=== PATIENT | female | born 1940 | race Caucasian/White ===

== ENCOUNTER → 2016-10-18 | Outpatient (CLI) | payer MEDICARE, OTHER ==
[~2016-10-18] MED LIST: ALBU8I INH; AMLO5TAB22 PO; ASPI81TA82 PO; ATOR40TA PO; CALC500T19 PO; CELE200C PO; FERR140T PO; GABA100C4 PO; MECL25 PO; REST30CA PO; SPIRCAP INH
[2016-10-18 09:16] LABS: AUTOMATED NEUTROPHIL # 3.4 TH/MM3 (1.8-7.7); BASOPHIL # 0.1 TH/MM3 (0-0.2); EOSINOPHIL # 0.3 TH/MM3 (0-0.4); EOSINOPHIL % 4.5 % (0.0-4.0); HEMATOCRIT 40.6 % (35.0-46.0); HEMO FLAGS DIFF FINAL; LYMPH % 29.6 % (9.0-44.0); LYMPHOCYTE # 1.7 TH/MM3 (1.0-4.8); MEAN CELL VOLUME 92.1 FL (80.0-100.0); MEAN CORPUSCULAR HGB CONC 33.7 % (32.0-36.0); MONO % 7.4 % (0.0-8.0); NEUT % 57.5 % (16.0-70.0); PLATELET COUNT 169 TH/MM3 (150-450); RED BLOOD COUNT 4.41 MIL/MM3 (4.00-5.30); RED CELL DISTRIBUTION WIDTH 13.3 % (11.6-17.2); WHITE BLOOD COUNT 5.8 TH/MM3 (4.0-11.0)
[2016-10-18 09:43] LABS: ALKALINE PHOSPHATASE 78 U/L (45-117); ALT (GPT) 17 U/L (10-53); ANION GAP 7 MEQ/L (5-15); AST (GOT) 12 U/L (15-37); BLOOD UREA NITROGEN 19 MG/DL (7-18); CHLORIDE 106 MEQ/L (98-107); GLOMERULAR FILTRATION RATE 78 ML/MIN (>89); GLUCOSE,FASTING 86 MG/DL (74-99); HDL CHOLESTEROL 64.1 MG/DL (40.0-60.0); LDL CHOLESTEROL 57 MG/DL (0-99); POTASSIUM 4.5 MEQ/L (3.5-5.1); SODIUM (NA) 142 MEQ/L (136-145); TOTAL BILIRUBIN ADULT 0.5 MG/DL (0.2-1.0)
[2016-10-18 10:56] LABS: HEMOGLOBIN A1a 1.4 %; HEMOGLOBIN A1b 1.5 %; HEMOGLOBIN Ao 85.8 %; HEMOGLOBIN P3 3.6 %
== END ==
LOC: PLAB 07:23
PROVIDERS: ATTEND Family Medicine
DX: R73.9 Hyperglycemia, unspecified (principal); E78.5 Hyperlipidemia, unspecified
CPT/HCPCS: 36415; 80053; 80061; 83036; 85025

== ENCOUNTER → 2017-03-25 | Outpatient (CLI) | payer MEDICARE, OTHER ==
[2017-03-25 09:29] LABS: ANION GAP 7 MEQ/L (5-15); AST (GOT) 38 U/L (15-37); BICARBONATE 27.8 MEQ/L (21.0-32.0); BLOOD UREA NITROGEN 13 MG/DL (7-18); CHLORIDE 105 MEQ/L (98-107); GLOMERULAR FILTRATION RATE 88 ML/MIN (>89); GLUCOSE,FASTING 88 MG/DL (74-99); POTASSIUM 3.9 MEQ/L (3.5-5.1); SODIUM (NA) 140 MEQ/L (136-145)
[2017-03-25 09:33] LABS: ALKALINE PHOSPHATASE 75 U/L (45-117); ALT (GPT) 27 U/L (10-53); LDL CHOLESTEROL 82 MG/DL (0-99); TOTAL BILIRUBIN ADULT 0.3 MG/DL (0.2-1.0)
== END ==
LOC: PLAB 06:44
PROVIDERS: ATTEND Family Medicine
DX: E78.5 Hyperlipidemia, unspecified (principal)
CPT/HCPCS: 36415; 80053; 80061

== ENCOUNTER 2017-05-01 21:45 | Emergency (ER) | payer MEDICARE, OTHER ==
[~2017-05-01] VITALS: Ht 167.6 cm; Wt 57.8 kg
[2017-05-01 21:57] VITALS: BP 186/80; PULSE 96; RESP 16; TEMP 98.1; O2SAT 95
[2017-05-01 22:45] VITALS: BP 169/74; PULSE 77; RESP 16; RESP 18; O2SAT 95
[2017-05-01] MEDS ORDERED: SODIUM CHLORIDE 0.9% FLUSH 10 ML FLUSH IVF PRN (23:00)
--- NOTE | 2017-05-01 23:27 | PD ---
HPI Chief Complaint: Respiratory Symptoms Time Seen by Provider: 22:25 Travel History International Travel<30 days: No Contact w/Intl Traveler<30days: No Traveled to known affect area: No History of Present Illness HPI Patient is a 76-year-old female who comes in after an episode of palpitations with shortness of breath and lightheadedness. She says she was sitting on her couch watching Lex Bean speak when she became very upset and started to feel this way. She says that she is worried because she has a history of cardiovascular disease. She denies ever having any chest pain. She says she currently still feels a little short of breath and lightheaded. She denies recent travel, leg swelling or leg pain. She says she did have 2 cups of coffee this evening, but this is not abnormal for her. She denies any drug or alcohol use. PFSH Past Medical History Cardiovascular Problems: Yes (70 heart blockage, last nuc stress test ? 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) Hypertension: No (PT DENIES BP MED IS FOR CARDIAC BLOCKAGE) Respiratory: Yes (COPD) Immunizations Current: Yes Influenza Vaccination: Yes PNEUMOCCOCAL Vaccine (Year): 2009 Menopausal: Yes : 3 Para: 4 Miscarriage: 1 Tubal Ligation: Yes Social History Alcohol Use: Yes (OCC) Tobacco Use: No (QUIT 1998) Substance Use: No Allergies-Medications (Allergen,Severity, Reaction): Coded Allergies: Penicillin (Verified Allergy, Severe, HIVES, 05/01/17) Reported Meds & Prescriptions Reported Meds & Active Scripts Active Antivert (Meclizine HCl) 25 Mg Tab 25 Mg PO Q6HPRN Reported Ventolin Hfa (Albuterol Sulfate) 8 Gm Aero 2 Puff INH Q4 * SHAKE WELL BEFORE USE * Celebrex (Celecoxib) 200 Mg Cap 200 Mg PO DAILY Amlodipine Besylate 5 mg (Amlodipine Besylate) 5 Mg Tab 5 Mg PO DAILY Atorvastatin 40 mg (Atorvastatin Calcium) 40 Mg Tab 1 Tab PO HS Gabapentin 100 Mg Cap 100 Mg PO DAILY Aspir-81 (Aspirin) 81 Mg Tab 162 Mg PO DAILY Spiriva [place] (Tiotropium [place]) 18 Mcg Cap 1 Dose INH DAILY DO NOT SWALLOW CAPSULES Calcium 500 Mg Tab 500 Mg PO DAILY Restoril 30 mg (Temazepam) 30 Mg Cap 30 Mg PO HS Review of Systems Except as stated in HPI: all other systems reviewed are Neg General / Constitutional: No: Fever, Chills Eyes: No: Blurred Vision HENT: Positive: Lightheadedness, No: Headaches Cardiovascular: Positive: Palpitations, No: Chest Pain or Discomfort Respiratory: Positive: Shortness of Breath, No: Cough Gastrointestinal: No: Nausea, Vomiting Musculoskeletal: No: Myalgias, Edema Skin: No Rash, No Change in Pigmentation Neurologic: Positive: Dizziness Physical Exam Narrative GENERAL: Awake and alert, in no acute distress. SKIN: Focused skin assessment warm/dry. HEAD: Atraumatic. Normocephalic. EYES: Pupils equal and round. No scleral icterus. ENT: Mucous membranes pink and moist. NECK: Trachea midline. No JVD. CARDIOVASCULAR: Regular rate and rhythm. No murmur appreciated. RESPIRATORY: No accessory muscle use. Clear to auscultation. Breath sounds equal bilaterally. MUSCULOSKELETAL: No obvious deformities. No clubbing. No cyanosis. No edema. NEUROLOGICAL: Awake and alert. No obvious cranial nerve deficits. Motor grossly within normal limits. Normal speech. PSYCHIATRIC: Appropriate mood and affect; insight and judgment normal. Data Data Last Documented VS Vital Signs Date Time Temp Pulse Resp B/P Pulse Ox O2 Delivery O2 Flow Rate FiO2 05/01/17 22:45 18 95 Room Air 05/01/17 22:45 77 169/74 05/01/17 21:57 98.1 Orders Complete Blood Count With Diff (05/01/17 22:50) Comprehensive Metabolic Panel (05/01/17 22:50) Act Partial Throm Time (Ptt) (05/01/17 22:50) Prothrombin Time / Inr (Pt) (05/01/17 22:50) Ckmb (Isoenzyme) Profile (05/01/17 22:50) Troponin I (05/01/17 22:50) Iv Access Insert/Monitor (05/01/17 22:50) Electrocardiogram (05/01/17 22:50) Ecg Monitoring (05/01/17 22:50) Oximetry (05/01/17 22:50) Oxygen Administration (05/01/17 22:50) Chest, Single Ap (05/01/17 22:50) Ct Pulmonary Angiogram (05/01/17 22:50) Sodium Chloride 0.9% Flush (Ns Flush) (05/01/17 23:00) Labs Laboratory Tests Test 05/01/17 23:15 White Blood Count 9.0 TH/MM3 Red Blood Count 4.20 MIL/MM3 Hemoglobin 13.0 GM/DL Hematocrit 38.8 % Mean Corpuscular Volume 92.5 FL Mean Corpuscular Hemoglobin 30.9 PG Mean Corpuscular Hemoglobin 33.4 % Concent Red Cell Distribution Width 12.7 % Platelet Count 171 TH/MM3 Mean Platelet Volume 8.6 FL Neutrophils (%) (Auto) 72.2 % Lymphocytes (%) (Auto) 16.5 % Monocytes (%) (Auto) 8.1 % Eosinophils (%) (Auto) 2.7 % Basophils (%) (Auto) 0.5 % Neutrophils # (Auto) 6.6 TH/MM3 Lymphocytes # (Auto) 1.5 TH/MM3 Monocytes # (Auto) 0.7 TH/MM3 Eosinophils # (Auto) 0.2 TH/MM3 Basophils # (Auto) 0.0 TH/MM3 CBC Comment DIFF FINAL Differential Comment Prothrombin Time 12.0 SEC Prothromb Time International 1.1 RATIO Ratio Activated Partial 28.5 SEC Thromboplast Time Sodium Level 142 MEQ/L Potassium Level 3.5 MEQ/L Chloride Level 108 MEQ/L Carbon Dioxide Level 27.4 MEQ/L Anion Gap 7 MEQ/L Blood Urea Nitrogen 15 MG/DL Creatinine 0.84 MG/DL Estimat Glomerular Filtration 66 ML/MIN Rate Random Glucose 140 MG/DL Calcium Level 8.3 MG/DL Total Bilirubin 0.2 MG/DL Aspartate Amino Transf 18 U/L (AST/SGOT) Alanine Aminotransferase 19 U/L (ALT/SGPT) Alkaline Phosphatase 84 U/L Total Creatine Kinase 63 U/L Troponin I LESS THAN 0.02 NG/ML Total Protein 7.0 GM/DL Albumin 3.6 GM/DL [facility] Medical Decision Making Medical Screen Exam Complete: Yes Emergency Medical Condition: Yes Medical Record Reviewed: Yes Interpretation(s) ECG shows normal sinus rhythm at 68, no ST elevation or depression, normal intervals Differential Diagnosis Electrolyte abnormality versus ACS versus dehydration versus pneumonia versus PE Narrative Course Patient is a 76-year-old female comes in complaining of an episode of palpitations, shortness of breath, lightheadedness. Exam shows no acute abnormality's. IV established, labs sent. Patient connected to the cardiac care unit nurse. Labs show no acute abnormalities. CXR shows no acute abnormalities. CTA chest ordered to look for PE. Signed out to Dr. Way to follow up testing and disposition the patient. Natasha Sultana MD May 01, 2017 23:27
[2017-05-01 23:33] LABS: AUTOMATED NEUTROPHIL # 6.6 TH/MM3 (1.8-7.7); BASOPHIL % 0.5 % (0.0-2.0); EOSINOPHIL # 0.2 TH/MM3 (0-0.4); EOSINOPHIL % 2.7 % (0.0-4.0); HEMATOCRIT 38.8 % (35.0-46.0); HEMO FLAGS DIFF FINAL; LYMPH % 16.5 % (9.0-44.0); LYMPHOCYTE # 1.5 TH/MM3 (1.0-4.8); MEAN CELL VOLUME 92.5 FL (80.0-100.0); MEAN CORPUSCULAR HEMOGLOBIN 30.9 PG (27.0-34.0); MEAN CORPUSCULAR HGB CONC 33.4 % (32.0-36.0); MONO % 8.1 % (0.0-8.0); NEUT % 72.2 % (16.0-70.0); PLATELET COUNT 171 TH/MM3 (150-450); RED CELL DISTRIBUTION WIDTH 12.7 % (11.6-17.2)
--- NOTE | 2017-05-01 23:41 | RADRPT ---
EXAM DATE/TIME: 05/01/2017 23:27 [facility] COMPARISON: CHEST PA & LAT, August 12, 2015, 10:09. CHEST SINGLE AP, November 25, 2014, 15:20. INDICATIONS : Shortness of breath starting today MEDICAL HISTORY : Chronic obstructive pulmonary disease. SURGICAL HISTORY : None. ENCOUNTER: Initial ACUITY: 1 day PAIN SCORE: 0/10 LOCATION: Bilateral chest FINDINGS: Portable AP view of the chest demonstrates a normal-sized cardiac silhouette. No effusion, consolidat ion, or pneumothorax is visualized. The bones and soft tissues demonstrate no acute abnormality. Ther e is a stable calcified granuloma at the left lower lung zone. Right convex curvature of the thoracic spine is stable. CONCLUSION: Stable chest x-ray. No acute cardiopulmonary abnormality is identified. Jak Draper MD on May 01, 2017 at 23:38 Board Certified Radiologist. This report was verified electronically.
[2017-05-01 23:44] LABS: CHLORIDE 108 MEQ/L (98-107); POTASSIUM 3.5 MEQ/L (3.5-5.1); SODIUM (NA) 142 MEQ/L (136-145)
[2017-05-01 23:45] VITALS: BP 142/59; PULSE 68; RESP 16; O2SAT 96
[2017-05-01 23:48] LABS: ANION GAP 7 MEQ/L (5-15); BICARBONATE 27.4 MEQ/L (21.0-32.0); BLOOD UREA NITROGEN 15 MG/DL (7-18)
[2017-05-01 23:49] LABS: APTT (PATIENT) 28.5 SEC (24.3-30.1); INTERNATIONAL NORMALIZED RATIO 1.1 RATIO
[2017-05-01 23:51] LABS: ALT (GPT) 19 U/L (10-53); AST (GOT) 18 U/L (15-37); GLOMERULAR FILTRATION RATE 66 ML/MIN (>89)
[2017-05-01 23:52] LABS: TOTAL BILIRUBIN ADULT 0.2 MG/DL (0.2-1.0)
[2017-05-01 23:54] LABS: ALKALINE PHOSPHATASE 84 U/L (45-117); CREATINE KINASE 63 U/L (26-192)
[2017-05-02] MEDS ORDERED: IOHEXOL 350 MG/ML 10 ML VIAL (for RAD DIAG) IV ONE (00:20)
--- NOTE | 2017-05-02 00:33 | RADRPT ---
EXAM DATE/TIME: 05/02/2017 00:04 [facility] COMPARISON: No previous studies available for comparison. INDICATIONS : Shortness of breath. IV CONTRAST: 75 cc Omnipaque 350 (iohexol) IV RADIATION DOSE: 6.15 CTDIvol (mGy) MEDICAL HISTORY : Chronic obstructive pulmonary disease. SURGICAL HISTORY : None. ENCOUNTER: Initial ACUITY: 1 day PAIN SCALE: 0/10 LOCATION: chest TECHNIQUE: Volumetric scanning of the chest was performed using a pulmonary embolism protocol MIP images were re constructed. Using automated exposure control and adjustment of the mA and/or kV according to patien t size, radiation dose was kept as low as reasonably achievable to obtain optimal diagnostic quality images. DICOM format image data is available electronically for review and comparison. Follow-up recommendations for incidentally detected pulmonary nodules are based at a minimum on nodul e size and patient risk factors according to Fleischner Society Guidelines. FINDINGS: Examination quality is degraded by respiratory motion artifact in the inferior chest. PULMONARY ARTERIES: No filling defects are seen in the pulmonary arteries through the segmental level. LUNGS: There is no consolidation or pneumothorax . No concerning pulmonary nodule is visualized. There is m oderate severity centrilobular emphysema. PLEURAE: There is no pleural thickening or pleural effusion. MEDIASTINUM: There is good visualization of the great vessels of the middle mediastinum. No evidence of mediastin al or hilar adenopathy/mass. There is atherosclerotic disease of aorta. MUSCULOSKELETAL: There are degenerative changes of the thoracic spine with mild scoliosis. MISCELLANEOUS: The visualized upper abdominal organs demonstrate no acute abnormality. Small hiatal hernia is presen t. CONCLUSION: 1. No PE is identified. 2. Nonacute findings include emphysema and small hiatal hernia. Jak Draper MD on May 02, 2017 at 0:27 Board Certified Radiologist. This report was verified electronically.
--- NOTE | 2017-05-02 00:48 | PD ---
Physical Exam Narrative Patient was seen by ED physician and signed out to me. Data Data Last Documented VS Vital Signs Date Time Temp Pulse Resp B/P Pulse Ox O2 Delivery O2 Flow Rate FiO2 05/01/17 22:45 18 95 Room Air 05/01/17 22:45 77 169/74 05/01/17 21:57 98.1 Orders Complete Blood Count With Diff (05/01/17 22:50) Comprehensive Metabolic Panel (05/01/17 22:50) Act Partial Throm Time (Ptt) (05/01/17 22:50) Prothrombin Time / Inr (Pt) (05/01/17 22:50) Ckmb (Isoenzyme) Profile (05/01/17 22:50) Troponin I (05/01/17 22:50) Iv Access Insert/Monitor (05/01/17 22:50) Electrocardiogram (05/01/17 22:50) Ecg Monitoring (05/01/17 22:50) Oximetry (05/01/17 22:50) Oxygen Administration (05/01/17 22:50) Chest, Single Ap (05/01/17 22:50) Ct Pulmonary Angiogram (05/01/17 22:50) Sodium Chloride 0.9% Flush (Ns Flush) (05/01/17 23:00) Iohexol 350 Inj (Omnipaque 350 Inj) (05/02/17 00:20) Labs Laboratory Tests Test 05/01/17 23:15 White Blood Count 9.0 TH/MM3 Red Blood Count 4.20 MIL/MM3 Hemoglobin 13.0 GM/DL Hematocrit 38.8 % Mean Corpuscular Volume 92.5 FL Mean Corpuscular Hemoglobin 30.9 PG Mean Corpuscular Hemoglobin 33.4 % Concent Red Cell Distribution Width 12.7 % Platelet Count 171 TH/MM3 Mean Platelet Volume 8.6 FL Neutrophils (%) (Auto) 72.2 % Lymphocytes (%) (Auto) 16.5 % Monocytes (%) (Auto) 8.1 % Eosinophils (%) (Auto) 2.7 % Basophils (%) (Auto) 0.5 % Neutrophils # (Auto) 6.6 TH/MM3 Lymphocytes # (Auto) 1.5 TH/MM3 Monocytes # (Auto) 0.7 TH/MM3 Eosinophils # (Auto) 0.2 TH/MM3 Basophils # (Auto) 0.0 TH/MM3 CBC Comment DIFF FINAL Differential Comment Prothrombin Time 12.0 SEC Prothromb Time International 1.1 RATIO Ratio Activated Partial 28.5 SEC Thromboplast Time Sodium Level 142 MEQ/L Potassium Level 3.5 MEQ/L Chloride Level 108 MEQ/L Carbon Dioxide Level 27.4 MEQ/L Anion Gap 7 MEQ/L Blood Urea Nitrogen 15 MG/DL Creatinine 0.84 MG/DL Estimat Glomerular Filtration 66 ML/MIN Rate Random Glucose 140 MG/DL Calcium Level 8.3 MG/DL Total Bilirubin 0.2 MG/DL Aspartate Amino Transf 18 U/L (AST/SGOT) Alanine Aminotransferase 19 U/L (ALT/SGPT) Alkaline Phosphatase 84 U/L Total Creatine Kinase 63 U/L Troponin I LESS THAN 0.02 NG/ML Total Protein 7.0 GM/DL Albumin 3.6 GM/DL MDM Supervised Visit with ИРИНА: No Interpretation(s) Last Impressions Chest X-Ray 05/01/172249 Signed Impressions: Service Date/Time: Monday, May 01, 2017 23:27 - CONCLUSION: Stable chest x-ray. No acute cardiopulmonary abnormality is identified. Jak Draper MD CT Angiography 05/01/172249 Signed Impressions: Service Date/Time: April 00:04 - CONCLUSION: 1. No PE is identified. 2. Nonacute findings include emphysema and small hiatal hernia. Jak Draper MD 12:45 AM. CBC within normal limits. CMP within normal limit. Cardiac enzymes are normal. Diagnosis Primary Impression: Dyspnea Qualified Code: R06.00 - Dyspnea, unspecified type Patient Instructions: General Instructions Additional Instruction: Follow-up with personal physician. Return as needed. Med/Other Pt SpecificInfo: No Change to Meds Disposition: DISCHARGE HOME Condition: Stable Giovani Way MD May 02, 2017 00:48
[2017-05-02 01:05] VITALS: BP 128/67; PULSE 78; RESP 16; O2SAT 95
[2017-05-02] MEDS ORDERED: FERR140T PO (03:13)
[2017-05-02] MEDS ORDERED: AMLO5TAB2 PO (03:13)
[2017-05-02] MEDS ORDERED: VENTAER INH (03:13)
[2017-05-02] MEDS ORDERED: MECL-62 PO (03:13)
[2017-05-02] MEDS ORDERED: SPIRCAP INH (03:13)
[2017-05-02] MEDS ORDERED: CALC500C16 CHEW (03:13)
[2017-05-02] MEDS ORDERED: GABA100C4 PO (03:13)
[2017-05-02] MEDS ORDERED: REST30CA PO (03:13)
[2017-05-02] MEDS ORDERED: ATOR40TA16 PO (03:13)
[2017-05-02] MEDS ORDERED: CELE200C PO (03:13)
[2017-05-02] MEDS ORDERED: ASPI81CH CHEW (03:13)
--- NOTE | 2017-05-02 12:48 | EKG ---
Date Performed: 05/01/2017 Time Performed: 22:58:39 PTAGE: 76 years EKG: Sinus rhythm NORMAL ECG PREVIOUS TRACING : 01/30/2016 23.39 DOCTOR: Campbell Eden Interpretating Date/Time 05/02/2017 12:45:02
== END 2017-05-02 01:18 | disposition home or self-care (01) ==
LOC: PHED 21:45
DX: R06.02 Shortness of breath (principal); R42 Dizziness and giddiness; R00.2 Palpitations; I25.10 Atherosclerotic heart disease of native coronary artery without angina pectoris; J44.9 Chronic obstructive pulmonary disease, unspecified; Z79.82 Long term (current) use of aspirin; Z87.891 Personal history of nicotine dependence
CPT/HCPCS: 71010; 71275; 80053; 82550; 84484; 85025; 85610; 85730; 93005; 99285; Q9967

== ENCOUNTER → 2017-06-25 | Outpatient (CLI) | payer MEDICARE, OTHER ==
[~2017-06-25] MED LIST changes: -ALBU8I INH; +AMLO5TAB2 PO; -AMLO5TAB22 PO; +ASPI81CH CHEW; -ASPI81TA82 PO; -ATOR40TA PO; +ATOR40TA16 PO; +CALC500C16 CHEW; -CALC500T19 PO; +GUAI1TAB18; +MECL-62 PO; -MECL25 PO; +PRED20 PO; +VENTAER INH
--- NOTE | 2017-07-12 11:30 | RSPPFT ---
DATE OF PROCEDURE: 06/25/17 COMMENTS: VOLUMES DYNAMIC: FVC moderately reduced; FEV1 severely reduced. STATIC: TLC normal; FRC and RV mildly increased. FLOWS: FEV1% moderately reduced; FEF 25-75 severely reduced. DIFFUSION: Moderately reduced. FLOW VOLUME LOOP: Pattern of variable intrathoracic airways obstruction. IMPRESSION: Moderately severe to severe obstructive ventilatory defect with hyperinflation and a reduction in diffusion consistent with emphysema. There is improvement post-bronchodilator.
== END ==
LOC: PHRSP 10:50
PROVIDERS: ATTEND Internal Medicine
DX: J44.9 Chronic obstructive pulmonary disease, unspecified (principal)
CPT/HCPCS: 94060; 94620; 94726; 94729

== ENCOUNTER 2017-07-13 16:01 | Emergency (ER) | payer MEDICARE, OTHER ==
[~2017-07-13] VITALS: Ht 167.6 cm; Wt 57.0 kg
[~2017-07-13 16:01] MED LIST changes: -GUAI1TAB18; -PRED20 PO
[2017-07-13 16:05] VITALS: BP 175/79; PULSE 122; RESP 18; TEMP 98.5; O2SAT 91
[2017-07-13 16:27] VITALS: BP 139/65; PULSE 84; RESP 26
[2017-07-13] MEDS ORDERED: GUAI1TAB18 (16:28)
--- NOTE | 2017-07-13 16:34 | PD ---
HPI Chief Complaint: Respiratory Symptoms Time Seen by Provider: 16:34 Travel History International Travel<30 days: No Contact w/Intl Traveler<30days: No Traveled to known affect area: No History of Present Illness HPI 76-year-old female came to the emergency room with history of shortness of breath is progressively worsening over past 2 weeks. Patient has history of COPD and ran out of her Spiriva 2 weeks ago. She went to see her compliance auditor Dr. Forrest who put her on a new medication which is an inhaler as well but patient says that she's been using it and it's not helping. She called his office again and was asked to take Mucinex [id number]. Patient is taking that as well but it continues to worsen.She can hear herself wheezing. There is associated wet cough that is getting worse as well. She is unable to bring up any phlegm. No history of fever or chills. No history of chest pain. Her is here with her who has known her for 8 years and says she has never had this kind of cough since he has known her. Her vital signs in triage was suggestive of tachycardia and hypoxia. However the repeat vital signs after she 's been on 2 L of oxygen via nasal cannula he hasn't saturation is slightly better. Patient does not require oxygen at home. No history of DVT or PEs. No history of recent long distance travel or prolonged hospitalization or procedures. [facility] Past Medical History Narrative Medical List of her past medical, surgical, social and family history is reviewed from the nursing note. Hx Anticoagulant Therapy: Yes (ASA) Cardiovascular Problems: Yes (70 heart blockage, last nuc stress test ? 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 Reported Meds & Prescriptions Reported Meds & Active Scripts Active Prednisone 20 Mg Tab 20 Mg PO BID 5 Days Reported Mucinex (Guaifenesin) 1,200 Mg Tab.er.12h Restoril (Temazepam) 30 Mg Cap 30 Mg PO HS Meclizine (Meclizine HCl) 25 Mg Tab 25 Mg PO Q6HR PRN Gabapentin 100 Mg Cap 100 Mg PO DAILY Calcium Carbonate (Antacid) 500 Mg Chew 500 Mg CHEW DAILY Atorvastatin (Atorvastatin Calcium) 40 Mg Tab 40 Mg PO HS Aspirin 81 Mg Chew 162 Mg CHEW DAILY Amlodipine (Amlodipine Besylate) 5 Mg Tab 5 Mg PO DAILY Ventolin Hfa 18 GM Inh (Albuterol Sulfate) 90 Mcg/Act Aer 2 Puff INH Q4H PRN Narrative Medication List of her home medications reviewed from the nursing note. Review of Systems Except as stated in HPI: all other systems reviewed are Neg Respiratory: Positive: Cough, Shortness of Breath, Wheezing Physical Exam Narrative GENERAL: Awake, alert, moderate distress SKIN: Focused skin assessment warm/dry. HEAD: Atraumatic. Normocephalic. EYES: Pupils equal and round. No scleral icterus. No injection or drainage. ENT: No nasal bleeding or discharge. Mucous membranes pink and moist. NECK: Trachea midline. No JVD. CARDIOVASCULAR: Regular rate and rhythm. No murmur appreciated. RESPIRATORY: No accessory muscle use. Diminished air entry bilaterally, end expiratory wheeze GASTROINTESTINAL: Abdomen soft, non-tender, nondistended. Hepatic and splenic margins not palpable. MUSCULOSKELETAL: No obvious deformities. No clubbing. No cyanosis. No edema. NEUROLOGICAL: Awake and alert. No obvious cranial nerve deficits. Motor grossly within normal limits. Normal speech. PSYCHIATRIC: Appropriate mood and affect; insight and judgment normal. Data Data Last Documented VS Vital Signs Date Time Temp Pulse Resp B/P (MAP) Pulse Ox O2 Delivery O2 Flow Rate FiO2 07/13/17 18:52 96 Room Air 07/13/17 16:47 2.00 07/13/17 16:27 84 26 07/13/17 16:05 98.5 Orders Orders Complete Blood Count With Diff (07/13/17 16:38) Basic Metabolic Panel (Bmp) (07/13/17 16:38) B-Type Natriuretic Peptide (07/13/17 16:38) Troponin I (07/13/17 16:38) Iv Access Insert/Monitor (07/13/17 16:38) Electrocardiogram (07/13/17 16:38) Ecg Monitoring (07/13/17 16:38) Oximetry (07/13/17 16:38) Oxygen Administration (07/13/17 16:38) Chest, Single Ap (07/13/17 16:38) Sodium Chloride 0.9% Flush (Ns Flush) (07/13/17 16:45) Methylprednisolone So Succ Inj (Solumedr (07/13/17 16:45) Albuterol-Ipratropium Neb (Duoneb Neb) (07/13/17 16:45) Albuterol Neb (Albuterol Neb) (07/13/17 18:00) Labs Laboratory Tests Test 07/13/17 16:50 White Blood Count 7.1 TH/MM3 Red Blood Count 4.33 MIL/MM3 Hemoglobin 13.1 GM/DL Hematocrit 39.9 % Mean Corpuscular Volume 92.1 FL Mean Corpuscular Hemoglobin 30.4 PG Mean Corpuscular Hemoglobin Concent 33.0 % Red Cell Distribution Width 12.7 % Platelet Count 187 TH/MM3 Mean Platelet Volume 8.6 FL Neutrophils (%) (Auto) 62.2 % Lymphocytes (%) (Auto) 22.1 % Monocytes (%) (Auto) 7.6 % Eosinophils (%) (Auto) 7.4 % Basophils (%) (Auto) 0.7 % Neutrophils # (Auto) 4.5 TH/MM3 Lymphocytes # (Auto) 1.6 TH/MM3 Monocytes # (Auto) 0.5 TH/MM3 Eosinophils # (Auto) 0.5 TH/MM3 Basophils # (Auto) 0.0 TH/MM3 CBC Comment DIFF FINAL Differential Comment Blood Urea Nitrogen 10 MG/DL Creatinine 0.70 MG/DL Random Glucose 97 MG/DL Calcium Level 8.7 MG/DL Sodium Level 139 MEQ/L Potassium Level 3.6 MEQ/L Chloride Level 106 MEQ/L Carbon Dioxide Level 26.2 MEQ/L Anion Gap 7 MEQ/L Estimat Glomerular Filtration Rate 82 ML/MIN Troponin I LESS THAN 0.02 NG/ML B-Type Natriuretic Peptide 40 PG/ML MDM Medical Decision Making Medical Screen Exam Complete: Yes Emergency Medical Condition: Yes Medical Record Reviewed: Yes Interpretation(s) Twelve-lead EKG was reviewed by me. Normal sinus rhythm, normal axis, nonspecific ST-T wave changes, PAC. Heart rate of 82 bpm. Differential Diagnosis Acute COPD exacerbation, congestive heart failure, pneumonia Narrative Course 4:46 PM awaiting for blood test results and x-ray. Patient will be getting IV Solu-Medrol and 3 duo nebs. I will reassess her in a bit. 5:57 PM I reassessed the patient. Her air entry is much better but there is still some wheezing. Patient says she feels better. She had a lot of questions to ask and I have answered all her questions to the best of my ability. Patient will get 2 more albuterol nebulizer. I would like to see her oxygen saturation on room air. Blood test results of back and within acceptable limits. Chest x-ray is negative for any infiltrate. 7:02 PM patient was asked to ambulate and after she walked around the department and came back pulse ox was checked and it is 94-96% on room air. Air entry was significantly improved. I'm comfortable discharging her home. Procedures EKG Prior to Arrival: No Diagnosis Primary Impression: Acute exacerbation of chronic obstructive pulmonary disease Referrals: Primary Care Physician 2 days Additional Instructions: Please return to the ER if the condition worsens or any other new concerns. Otherwise follow-up with your primary care in couple days. Use your rescue inhaler which is albuterol 2 puffs every 4-6 hours till your symptoms completely improved or for 5 days which ever comes first. Take the prescription as per the directions. Med/Other Pt SpecificInfo: Prescription(s) given Scripts Prednisone (Prednisone) 20 Mg Tab 20 MG PO BID for 5 Days, #10 TAB 0 Refills Prov: Reno Chauhan MD 07/13/17 Disposition: 01 DISCHARGE HOME Condition: Stable Reno Chauhan MD Jul 13, 2017 16:34
[2017-07-13] MEDS ORDERED: methylPREDNISolone SOD SUCC 125 MG/2 ML VIAL IV PUSH ONE (16:45)
[2017-07-13] MEDS ORDERED: SODIUM CHLORIDE 0.9% FLUSH 10 ML FLUSH IVF PRN (16:45)
[2017-07-13] MEDS: RESP: ALBUTEROL 2.5 MG/IPRATROPIUM 0.5 MG NEB (SCH) INH ×2 (16:46→16:47)
[2017-07-13 16:47] VITALS: O2SAT 95
[2017-07-13 16:54] LABS: AUTOMATED NEUTROPHIL # 4.5 TH/MM3 (1.8-7.7); BASOPHIL % 0.7 % (0.0-2.0); EOSINOPHIL # 0.5 TH/MM3 (0-0.4); EOSINOPHIL % 7.4 % (0.0-4.0); HEMATOCRIT 39.9 % (35.0-46.0); HEMO FLAGS DIFF FINAL; LYMPH % 22.1 % (9.0-44.0); LYMPHOCYTE # 1.6 TH/MM3 (1.0-4.8); MEAN CELL VOLUME 92.1 FL (80.0-100.0); MEAN CORPUSCULAR HEMOGLOBIN 30.4 PG (27.0-34.0); MONO % 7.6 % (0.0-8.0); NEUT % 62.2 % (16.0-70.0); PLATELET COUNT 187 TH/MM3 (150-450); RED BLOOD COUNT 4.33 MIL/MM3 (4.00-5.30); RED CELL DISTRIBUTION WIDTH 12.7 % (11.6-17.2); WHITE BLOOD COUNT 7.1 TH/MM3 (4.0-11.0)
[2017-07-13 17:03] LABS: CHLORIDE 106 MEQ/L (98-107); POTASSIUM 3.6 MEQ/L (3.5-5.1); SODIUM (NA) 139 MEQ/L (136-145)
[2017-07-13 17:06] LABS: ANION GAP 7 MEQ/L (5-15); BICARBONATE 26.2 MEQ/L (21.0-32.0); BLOOD UREA NITROGEN 10 MG/DL (7-18)
[2017-07-13 17:09] LABS: GLOMERULAR FILTRATION RATE 82 ML/MIN (>89)
--- NOTE | 2017-07-13 17:10 | RADRPT ---
EXAM DATE/TIME: 07/13/2017 16:57 [facility] COMPARISON: CHEST SINGLE AP, May 01, 2017, 23:27. INDICATIONS : Short of breath MEDICAL HISTORY : Chronic obstructive pulmonary disease. SURGICAL HISTORY : None. ENCOUNTER: Initial ACUITY: 2 days PAIN SCORE: 0/10 LOCATION: Bilateral chest FINDINGS: A single view of the chest demonstrates the lungs to be symmetrically aerated without evidence of mas s, infiltrate or effusion. The cardiomediastinal contours are unremarkable. Osseous structures are intact. CONCLUSION: No acute disease. Stable hyperinflation. Gucci Blake MD on July 13, 2017 at 17:08 Board Certified Radiologist. This report was verified electronically.
[2017-07-13] MEDS: RESP: ALBUTEROL 2.5 MG/3 ML NEB (SCH) INH ×2 (18:09→18:10)
[2017-07-13 18:52] VITALS: O2SAT 96
[2017-07-13] MEDS ORDERED: PRED20 PO (19:05)
--- NOTE | 2017-07-14 05:58 | EKG ---
Date Performed: 07/13/2017 Time Performed: 16:51:40 PTAGE: 76 years EKG: Sinus rhythm WITH OCCASIONAL SUPRAVENTRICULAR PREMATURE COMPLEXES MINIMAL ST DEPRESSION BORDERLINE ECG PREVIOUS TRACING : 05/01/2017 22.58 DOCTOR: Campbell Eden Interpretating Date/Time 07/14/2017 05:55:24
== END 2017-07-13 19:12 | disposition home or self-care (01) ==
LOC: PHED 16:01
DX: J44.1 Chronic obstructive pulmonary disease with (acute) exacerbation (principal); R94.31 Abnormal electrocardiogram [ECG] [EKG]; Z79.82 Long term (current) use of aspirin; Z88.0 Allergy status to penicillin
CPT/HCPCS: 71010; 80048; 83880; 84484; 85025; 93005; 94640; 94664; 96374; 99285; J2930; J7613

== ENCOUNTER 2017-08-06 20:13 | Emergency (ER) | payer MEDICARE, OTHER ==
[~2017-08-06] VITALS: Ht 165.1 cm; Wt 57.0 kg
[~2017-08-06 20:13] MED LIST changes: +ASPI-516 CHEW; -ASPI81CH CHEW; -CELE200C PO; -FERR140T PO; +GUAI1TAB18; +PRED20 PO; -SPIRCAP INH
[2017-08-06 20:16] VITALS: BP 172/79; PULSE 92; RESP 16; TEMP 98.2; O2SAT 95
--- NOTE | 2017-08-06 20:21 | PD ---
Physical Exam Date Seen by Provider: Aug 06, 2017 Time Seen by Provider: 20:19 Narrative 76-year-old white female presents to emergency department with complaints of COPD exacerbation. She is on her last day of antibiotics and steroids. She's been using her inhalers and nebulizer. She has had worsening symptoms in the last 24 hours. She swallowed by Dr. Forrest her field mechanic/site lead. She is concerned that her symptoms are worse in the last 24 hours. She was seen in the ER approximately 2 weeks ago in [place]. No fever or chills. No nausea vomiting. No chest pain. Vital signs reviewed. Pt waiting for bed placement. Data Data Last Documented VS Vital Signs Date Time Temp Pulse Resp B/P (MAP) Pulse Ox O2 Delivery O2 Flow Rate FiO2 08/06/17 20:16 98.2 92 16 172/79 (110) 95 Room Air [facility] Medical Record Reviewed: No Supervised Visit with ИРИНА: Khai Villalobos Aug 06, 2017 20:21
[2017-08-06 20:32] VITALS: BP 179/80; PULSE 83; RESP 18; O2SAT 98
--- NOTE | 2017-08-06 20:36 | PD ---
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 Patient was seen here proximal 3 weeks ago with COPD exacerbation treated with prednisone, albuterol, and antibiotics. Patient was then followed up with Dr. Forrest, who placed the patient on Cipro 500 mg twice a day as well as prednisone 20 mg daily, and Combivent nebulizers every 6 hours. Patient felt she was doing better until this morning when she woke up and felt more dyspneic and short of breath. She denies fever, chills, or productive cough. Patient has a follow-up scheduled for tomorrow with Dr. Forrest, and is on her last dosage of prednisone and Cipro tomorrow morning. Patient denies cardiac history, and reports normal stress test approximately one year ago. Patient is not on any long-acting bronchodilator inhalers or inhaled steroids. Patient denies any significant chest pain only pressure in dyspnea. Patient is allergic to penicillin. PFSH Past Medical History Hx Anticoagulant Therapy: Yes (ASA) Cardiovascular Problems: Yes (70 heart blockage, last nuc stress test ? 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) Hypertension: No (PT DENIES; BP MED IS FOR CARDIAC BLOCKAGE) Respiratory: Yes (COPD) Immunizations Current: Yes Tetanus Vaccination: > 5 Years Influenza Vaccination: Yes PNEUMOCCOCAL Vaccine (Year): 2009 Menopausal: Yes : 3 Para: 4 Miscarriage: 1 Tubal Ligation: Yes Past Surgical History Surgical History: No Previous Surgery Social History Alcohol Use: Yes (OCC) Tobacco Use: No (QUIT 1998) Substance Use: No Allergies-Medications (Allergen,Severity, Reaction): Coded Allergies: penicillin G (Verified Allergy, Severe, HIVES, 08/06/17) Reported Meds & Prescriptions Reported Meds & Active Scripts Active Prednisone 20 Mg Tab 20 Mg PO BID 5 Days Reported Mucinex (Guaifenesin) 1,200 Mg Tab.er.12h Restoril (Temazepam) 30 Mg Cap 30 Mg PO HS Meclizine (Meclizine HCl) 25 Mg Tab 25 Mg PO Q6HR PRN Gabapentin 100 Mg Cap 100 Mg PO DAILY Calcium Carbonate (Antacid) 500 Mg Chew 500 Mg CHEW DAILY Atorvastatin (Atorvastatin Calcium) 40 Mg Tab 40 Mg PO HS Aspirin 81 Mg Chew 162 Mg CHEW DAILY Amlodipine (Amlodipine Besylate) 5 Mg Tab 5 Mg PO DAILY Ventolin Hfa 18 GM Inh (Albuterol Sulfate) 90 Mcg/Act Aer 2 Puff INH Q4H PRN Review of Systems Except as stated in HPI: all other systems reviewed are Neg General / Constitutional: No: Fever Eyes: No: Visual changes HENT: No: Headaches Cardiovascular: Positive: Chest Pain or Discomfort (pressure), Dyspnea on exertion, No: Palpitations, Irregular Rhythm, Tachycardia, Diaphoresis, Syncope , Varicosities, Edema, Cyanosis, Varicosities, Phlebitis, Claudication Respiratory: Positive: Shortness of Breath, Wheezing, No: Cough, Sneezing, Orthopnea, Hemoptysis, Stridor, Night Sweats, Pleuritic Pain Gastrointestinal: No: Nausea, Vomiting, Diarrhea, Abdominal Pain Genitourinary: No: Dysuria Musculoskeletal: No: Pain Skin: No Rash Neurologic: No: Weakness Psychiatric: No: Depression Endocrine: No: Polydipsia Hematologic/Lymphatic: No: Easy Bruising Physical Exam Narrative GENERAL: Patient appears mildly anxious, and is able to speak in full sentences. SKIN: Warm and dry. Normal color. Normal turgor. No cyanosis. HEAD: Atraumatic. Normocephalic. EYES: Pupils equal and round. No scleral icterus. No injection or drainage. ENT: No nasal bleeding or discharge. Mucous membranes pink and moist. TMs are clear. Pharynx is normal. Airway is patent. No sinus tenderness to palpation. NECK: Trachea midline. Supple and nontender. CARDIOVASCULAR: Regular rate and rhythm. No murmurs gallops or rubs. RESPIRATORY: No accessory muscle use. Clear to auscultation at this time. No audible wheezes, rales, or rhonchi. Breath sounds equal bilaterally. GASTROINTESTINAL: Abdomen soft, non-tender, nondistended. Hepatic and splenic margins not palpable. MUSCULOSKELETAL: Extremities without clubbing, cyanosis, or edema. No obvious deformities. NEUROLOGICAL: Awake and alert. No obvious cranial nerve deficits. Motor grossly within normal limits. Five out of 5 muscle strength in the arms and legs. Normal speech. PSYCHIATRIC: Appropriate mood and affect; insight and judgment normal. Data Data Last Documented VS Vital Signs Date Time Temp Pulse Resp B/P (MAP) Pulse Ox O2 Delivery O2 Flow Rate FiO2 08/06/17 22:10 68 18 142/63 (89) 96 Room Air 08/06/17 21:09 21 08/06/17 20:16 98.2 Orders Orders Complete Blood Count With Diff (08/06/17 20:47) Comprehensive Metabolic Panel (08/06/17 20:47) B-Type Natriuretic Peptide (08/06/17 20:47) Act Partial Throm Time (Ptt) (08/06/17 20:47) Prothrombin Time / Inr (Pt) (08/06/17 20:47) Magnesium (Mg) (08/06/17 20:47) Ckmb (Isoenzyme) Profile (08/06/17 20:47) Troponin I (08/06/17 20:47) Iv Access Insert/Monitor (08/06/17 20:47) Electrocardiogram (08/06/17 20:47) Ecg Monitoring (08/06/17 20:47) Oximetry (08/06/17 20:47) Oxygen Administration (08/06/17 20:47) Sodium Chloride 0.9% Flush (Ns Flush) (08/06/17 21:00) Methylprednisolone So Succ Inj (Solumedr (08/06/17 21:00) Albuterol-Ipratropium Neb (Duoneb Neb) (08/06/17 21:00) Resp Peak Flow Rate (08/06/17 ) Aspirin Chew (Aspirin Chew) (08/06/17 21:00) Chest, Single Ap (08/06/17 20:58) Labs Laboratory Tests Test 08/06/17 21:00 White Blood Count 8.5 TH/MM3 Red Blood Count 4.36 MIL/MM3 Hemoglobin 13.5 GM/DL Hematocrit 41.1 % Mean Corpuscular Volume 94.4 FL Mean Corpuscular Hemoglobin 31.1 PG Mean Corpuscular Hemoglobin Concent 32.9 % Red Cell Distribution Width 14.0 % Platelet Count 222 TH/MM3 Mean Platelet Volume 8.4 FL Neutrophils (%) (Auto) 90.4 % Lymphocytes (%) (Auto) 6.3 % Monocytes (%) (Auto) 3.1 % Eosinophils (%) (Auto) 0.0 % Basophils (%) (Auto) 0.2 % Neutrophils # (Auto) 7.7 TH/MM3 Lymphocytes # (Auto) 0.5 TH/MM3 Monocytes # (Auto) 0.3 TH/MM3 Eosinophils # (Auto) 0.0 TH/MM3 Basophils # (Auto) 0.0 TH/MM3 CBC Comment DIFF FINAL Differential Comment Prothrombin Time 11.6 SEC Prothromb Time International Ratio 1.0 RATIO Activated Partial Thromboplast Time 24.0 SEC Blood Urea Nitrogen 15 MG/DL Creatinine 0.91 MG/DL Random Glucose 124 MG/DL Total Protein 7.1 GM/DL Albumin 3.6 GM/DL Calcium Level 8.7 MG/DL Magnesium Level 2.3 MG/DL Alkaline Phosphatase 73 U/L Aspartate Amino Transf (AST/SGOT) 16 U/L Alanine Aminotransferase (ALT/SGPT) 26 U/L Total Bilirubin 0.4 MG/DL Sodium Level 137 MEQ/L Potassium Level 4.3 MEQ/L Chloride Level 105 MEQ/L Carbon Dioxide Level 22.6 MEQ/L Anion Gap 9 MEQ/L Estimat Glomerular Filtration Rate 60 ML/MIN Total Creatine Kinase 54 U/L Troponin I LESS THAN 0.02 NG/ML B-Type Natriuretic Peptide 45 PG/ML MDM Medical Decision Making Medical Screen Exam Complete: Yes Emergency Medical Condition: Yes Medical Record Reviewed: Yes Differential Diagnosis Anxiety. Dyspnea. CHF. Cardiac syndrome. COPD with exacerbation. Chronic bronchitis. Narrative Course Patient appears medically stable at time of exam. EKG is performed showing normal sinus rhythm with no ST changes. This is reviewed with Dr. Buenrostro. Labs ordered including CBC, CMP, proBNP, and cardiac panel. Chest x-ray is ordered. DuoNeb is ordered with pre-and post pulmonary function tests. Patient is given 125 mg Solu-Medrol IV. Patient is given aspirin 324 mg by mouth. CBC is unremarkable. CMP is unremarkable. ProBNP is 48. Troponin is less than 0.02 Chest x-ray is unremarkable. Patient feels improved after the above treatment. No further medical treatment is felt warranted. Patient should follow with Dr. Forrest tomorrow as scheduled. Diagnosis Primary Impression: COPD (chronic obstructive pulmonary disease) Qualified Codes: J44.9 - Chronic obstructive pulmonary disease, unspecified Referrals: Michaela Forrest MD 1 day Patient Instructions: General Instructions, How to Use a Metered-Dose Inhaler ( ED), How to Use a Nebulizer (DC), Prednisone (By mouth) Additional Instructions: CBC is unremarkable. CMP is unremarkable. ProBNP is 48. Troponin is less than 0.02 Chest x-ray is unremarkable. Patient feels improved after the above treatment. No further medical treatment is felt warranted. Patient should follow with Dr. Forrest tomorrow as scheduled. Med/Other Pt SpecificInfo: No Change to Meds Disposition: 01 DISCHARGE HOME Condition: Stable Preet Aj Aug 06, 2017 20:36
[2017-08-06 20:37] VITALS: O2SAT 98
[2017-08-06] MEDS ORDERED: methylPREDNISolone SOD SUCC 125 MG/2 ML VIAL IV PUSH ONE (21:00)
[2017-08-06] MEDS ORDERED: ASPIRIN 81 MG CHEW TAB CHEW ONE (21:00)
[2017-08-06] MEDS ORDERED: SODIUM CHLORIDE 0.9% FLUSH 10 ML FLUSH IVF PRN (21:00)
[2017-08-06] MEDS ORDERED: RESP: ALBUTEROL 2.5 MG/IPRATROPIUM 0.5 MG NEB (SCH) INH ONE (21:00)
[2017-08-06 21:09] VITALS: O2SAT 96
[2017-08-06 21:16] LABS: AUTOMATED NEUTROPHIL # 7.7 TH/MM3 (1.8-7.7); BASOPHIL % 0.2 % (0.0-2.0); HEMATOCRIT 41.1 % (35.0-46.0); HEMO FLAGS DIFF FINAL; LYMPH % 6.3 % (9.0-44.0); LYMPHOCYTE # 0.5 TH/MM3 (1.0-4.8); MEAN CELL VOLUME 94.4 FL (80.0-100.0); MEAN CORPUSCULAR HEMOGLOBIN 31.1 PG (27.0-34.0); MEAN CORPUSCULAR HGB CONC 32.9 % (32.0-36.0); MONO % 3.1 % (0.0-8.0); NEUT % 90.4 % (16.0-70.0); PLATELET COUNT 222 TH/MM3 (150-450); RED BLOOD COUNT 4.36 MIL/MM3 (4.00-5.30); WHITE BLOOD COUNT 8.5 TH/MM3 (4.0-11.0)
[2017-08-06 21:28] LABS: PROTHROMBIN TIME - PATIENT 11.6 SEC (9.8-11.6)
--- NOTE | 2017-08-06 21:32 | RADRPT ---
EXAM DATE/TIME: 08/06/2017 21:19 [facility] COMPARISON: CHEST SINGLE AP, July 13, 2017, 16:57. INDICATIONS : Short of breath and congestion. MEDICAL HISTORY : Chronic obstructive pulmonary disease. SURGICAL HISTORY : None. ENCOUNTER: Initial ACUITY: 3 days PAIN SCORE: 0/10 LOCATION: Bilateral chest FINDINGS: A single view of the chest demonstrates the lungs to be symmetrically aerated without evidence of mas s, infiltrate or effusion. The cardiomediastinal contours are unremarkable. Osseous structures are intact. CONCLUSION: No acute disease. Sumanth Monte MD on August 06, 2017 at 21:26 Board Certified Radiologist. This report was verified electronically.
[2017-08-06 21:42] LABS: ANION GAP 9 MEQ/L (5-15); AST (GOT) 16 U/L (15-37); BICARBONATE 22.6 MEQ/L (21.0-32.0); BLOOD UREA NITROGEN 15 MG/DL (7-18); CHLORIDE 105 MEQ/L (98-107); GLOMERULAR FILTRATION RATE 60 ML/MIN (>89); MAGNESIUM 2.3 MG/DL (1.5-2.5); POTASSIUM 4.3 MEQ/L (3.5-5.1); SODIUM (NA) 137 MEQ/L (136-145)
[2017-08-06 21:43] LABS: ALT (GPT) 26 U/L (10-53)
[2017-08-06 21:48] LABS: ALKALINE PHOSPHATASE 73 U/L (45-117); TOTAL BILIRUBIN ADULT 0.4 MG/DL (0.2-1.0)
[2017-08-06 21:55] LABS: CREATINE KINASE 54 U/L (26-192)
[2017-08-06 22:10] VITALS: BP 142/63; PULSE 68; RESP 18; O2SAT 96
--- NOTE | 2017-08-06 22:13 | PD ---
Data Data Last Documented VS Vital Signs Date Time Temp Pulse Resp B/P (MAP) Pulse Ox O2 Delivery O2 Flow Rate FiO2 08/06/17 22:10 68 18 142/63 (89) 96 Room Air 08/06/17 21:09 21 08/06/17 20:16 98.2 Orders Orders Complete Blood Count With Diff (08/06/17 20:47) Comprehensive Metabolic Panel (08/06/17 20:47) B-Type Natriuretic Peptide (08/06/17 20:47) Act Partial Throm Time (Ptt) (08/06/17 20:47) Prothrombin Time / Inr (Pt) (08/06/17 20:47) Magnesium (Mg) (08/06/17 20:47) Ckmb (Isoenzyme) Profile (08/06/17 20:47) Troponin I (08/06/17 20:47) Iv Access Insert/Monitor (08/06/17 20:47) Electrocardiogram (08/06/17 20:47) Ecg Monitoring (08/06/17 20:47) Oximetry (08/06/17 20:47) Oxygen Administration (08/06/17 20:47) Sodium Chloride 0.9% Flush (Ns Flush) (08/06/17 21:00) Methylprednisolone So Succ Inj (Solumedr (08/06/17 21:00) Albuterol-Ipratropium Neb (Duoneb Neb) (08/06/17 21:00) Resp Peak Flow Rate (08/06/17 ) Aspirin Chew (Aspirin Chew) (08/06/17 21:00) Chest, Single Ap (08/06/17 20:58) Ed Discharge Order (08/06/17 22:32) Ed Discharge Order (08/06/17 22:33) Labs Laboratory Tests Test 08/06/17 21:00 White Blood Count 8.5 TH/MM3 Red Blood Count 4.36 MIL/MM3 Hemoglobin 13.5 GM/DL Hematocrit 41.1 % Mean Corpuscular Volume 94.4 FL Mean Corpuscular Hemoglobin 31.1 PG Mean Corpuscular Hemoglobin Concent 32.9 % Red Cell Distribution Width 14.0 % Platelet Count 222 TH/MM3 Mean Platelet Volume 8.4 FL Neutrophils (%) (Auto) 90.4 % Lymphocytes (%) (Auto) 6.3 % Monocytes (%) (Auto) 3.1 % Eosinophils (%) (Auto) 0.0 % Basophils (%) (Auto) 0.2 % Neutrophils # (Auto) 7.7 TH/MM3 Lymphocytes # (Auto) 0.5 TH/MM3 Monocytes # (Auto) 0.3 TH/MM3 Eosinophils # (Auto) 0.0 TH/MM3 Basophils # (Auto) 0.0 TH/MM3 CBC Comment DIFF FINAL Differential Comment Prothrombin Time 11.6 SEC Prothromb Time International Ratio 1.0 RATIO Activated Partial Thromboplast Time 24.0 SEC Blood Urea Nitrogen 15 MG/DL Creatinine 0.91 MG/DL Random Glucose 124 MG/DL Total Protein 7.1 GM/DL Albumin 3.6 GM/DL Calcium Level 8.7 MG/DL Magnesium Level 2.3 MG/DL Alkaline Phosphatase 73 U/L Aspartate Amino Transf (AST/SGOT) 16 U/L Alanine Aminotransferase (ALT/SGPT) 26 U/L Total Bilirubin 0.4 MG/DL Sodium Level 137 MEQ/L Potassium Level 4.3 MEQ/L Chloride Level 105 MEQ/L Carbon Dioxide Level 22.6 MEQ/L Anion Gap 9 MEQ/L Estimat Glomerular Filtration Rate 60 ML/MIN Total Creatine Kinase 54 U/L Troponin I LESS THAN 0.02 NG/ML B-Type Natriuretic Peptide 45 PG/ML MDM Medical Record Reviewed: Yes Supervised Visit with ИРИНА: Yes Narrative Course I, Dr. Buenrostro, have reviewed the advance practice practitioner's documentation and am in agreement, met with the patient face to face, made the diagnosis, and the medical decision making was done by me. *My assessment and Findings: Condition in keeping with pulmonary related disease complaints. Patient has follow-up Dr. park in the morning. She had a stress test less than a few months ago which was normal. She had a cardiac cath less than 5 years ago which was normal. Condition: Stable Triston Buenrostro MD Aug 06, 2017 22:13
--- NOTE | 2017-08-07 15:40 | EKG ---
Date Performed: 08/06/2017 Time Performed: 20:37:15 PTAGE: 76 years EKG: Sinus rhythm NORMAL ECG Compared to prior tracing no significant change DOCTOR: Adelaide Erickson Interpretating Date/Time 08/07/2017 15:39:38
== END 2017-08-06 23:22 | disposition home or self-care (01) ==
LOC: NEPC 20:13
DX: J44.1 Chronic obstructive pulmonary disease with (acute) exacerbation (principal); E78.00 Pure hypercholesterolemia, unspecified; R06.02 Shortness of breath; Z79.899 Other long term (current) drug therapy; Z87.891 Personal history of nicotine dependence
CPT/HCPCS: 71010; 80053; 82550; 83735; 83880; 84484; 85025; 85610; 85730; 93005; 94664; 94799; 96374; 99285; J2930

== ENCOUNTER 2017-10-16 09:32 | Emergency (ER) | payer MEDICARE, OTHER ==
[~2017-10-16] VITALS: Ht 167.6 cm; Wt 58.3 kg
[2017-10-16 09:37] VITALS: BP 115/57; PULSE 107; RESP 16; TEMP 99.1
--- NOTE | 2017-10-16 10:09 | PD ---
HPI Chief Complaint: Cold / Flu Symptoms Time Seen by Provider: 09:41 Travel History International Travel<30 days: No Contact w/Intl Traveler<30days: No Traveled to known affect area: No History of Present Illness HPI This patient complains of cough and congestion and runny nose. The patient was seen and examined in the presence of the nurse. She has some body aches. Duration 2 days. No alleviating factors. PFSH Past Medical History Hx Anticoagulant Therapy: Yes (ASA) Cardiovascular Problems: Yes (70 heart blockage, last nuc stress test ? 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) Hypertension: No (PT DENIES; BP MED IS FOR CARDIAC BLOCKAGE) Respiratory: Yes (COPD) Immunizations Current: Yes Tetanus Vaccination: < 5 Years Influenza Vaccination: Yes PNEUMOCCOCAL Vaccine (Year): 2009 ?: Not Menopausal: Yes : 3 Para: 4 Miscarriage: 1 Tubal Ligation: Yes Past Surgical History Hysterectomy: No Social History Alcohol Use: Yes (OCC) Tobacco Use: No (QUIT 1998) Substance Use: No Allergies-Medications (Allergen,Severity, Reaction): Coded Allergies: penicillin G (Verified Allergy, Severe, HIVES, 10/16/17) Reported Meds & Prescriptions Reported Meds & Active Scripts Active Prednisone 20 Mg Tab 20 Mg PO BID 5 Days Reported Albuterol Neb (Albuterol Sulfate) Unknown Strength Neb Unknown Dose NEB TID PRN Symbicort Inh (Budesonide/Formoterol Fumarate) Unknown Strength Aero Unknown Dose INH Q12HR Restoril (Temazepam) 30 Mg Cap 30 Mg PO HS Meclizine (Meclizine HCl) 25 Mg Tab 25 Mg PO Q6HR PRN Gabapentin 100 Mg Cap 100 Mg PO DAILY Calcium Carbonate (Antacid) 500 Mg Chew 500 Mg CHEW DAILY Atorvastatin (Atorvastatin Calcium) 40 Mg Tab 40 Mg PO HS Aspirin 81 Mg Chew 81 Mg CHEW DAILY Amlodipine (Amlodipine Besylate) 5 Mg Tab 5 Mg PO DAILY Ventolin Hfa 18 GM Inh (Albuterol Sulfate) 90 Mcg/Act Aer 2 Puff INH Q4H PRN Review of Systems HENT: No: Headaches Respiratory: Positive: Cough Gastrointestinal: No: Vomiting Genitourinary: No: Frequency Physical Exam Narrative GENERAL: Well-nourished, well-developed patient in no apparent distress. SKIN: Focused skin assessment reveals no rash and nodules. Skin is Warm and dry. HEAD: Atraumatic. Normocephalic. EYES: Pupils equal and round. No scleral icterus. No injection or drainage. ENT: No nasal bleeding or discharge. Mucous membranes pink and moist. NECK: Trachea midline. No JVD. CARDIOVASCULAR: Regular rate and rhythm. No murmur appreciated. RESPIRATORY: No accessory muscle use. Clear to auscultation. Breath sounds equal bilaterally. GASTROINTESTINAL: Abdomen soft, non-tender, nondistended. Hepatic and splenic margins not palpable. MUSCULOSKELETAL: No obvious deformities. No clubbing. No cyanosis. No edema. NEUROLOGICAL: Awake and alert. No obvious cranial nerve deficits. Motor grossly within normal limits. Normal speech. PSYCHIATRIC: Appropriate mood and affect; insight and judgment normal. Data Data Last Documented VS Vital Signs Date Time Temp Pulse Resp B/P (MAP) Pulse Ox O2 Delivery O2 Flow Rate FiO2 10/16/17 09:56 106 16 93 Room Air 10/16/17 09:37 99.1 115/57 (76) Orders Orders Chest, Single Ap (10/16/17 ) Influenzae A/B Antigen (10/16/17 09:52) MDM Medical Decision Making Medical Screen Exam Complete: Yes Emergency Medical Condition: Yes Medical Record Reviewed: Yes Differential Diagnosis Bronchitis, pneumonia, flu syndrome Narrative Course I have reviewed the patient's electronic medical record. I Reviewed her chest x-ray which is negative for consolidation. There is suggestion of peribronchial cuffing which would suggest viral bronchitis Influenza swab is negative On recheck she is doing well. Her pulse oximetry is on 100% room air She has nebulizer and inhaler to use at home if needed. She has viral bronchitis and stable for outpatient follow-up. I don't see indication for antibiotics. I don't think this is a COPD exacerbation Diagnosis Primary Impression: Acute viral bronchitis Additional Impression: History of COPD Additional Instructions: The patient was advised to follow up with their physician and return if they worsen. Med/Other Pt SpecificInfo: Other Disposition: 01 DISCHARGE HOME Condition: Stable Tom Camp MD Oct 16, 2017 10:09
[2017-10-16] MEDS ORDERED: SYMB160A INH ×2 (10:39)
[2017-10-16] MEDS ORDERED: ALBU0.63 NEB ×2 (10:40)
[2017-10-16 10:42] VITALS: BP 105/79
--- NOTE | 2017-10-16 10:52 | RADRPT ---
EXAM DATE/TIME: 10/16/2017 10:25 [facility] COMPARISON: CHEST SINGLE AP, August 06, 2017, 21:19. INDICATIONS : Cough, short of breath, chest tightness. MEDICAL HISTORY : Chronic obstructive pulmonary disease. SURGICAL HISTORY : None. ENCOUNTER: Initial ACUITY: 3 days PAIN SCORE: 0/10 LOCATION: Bilateral chest FINDINGS: Compared to 08/06/17 there is increasing peribronchial thickening in both basces. There is no other consolidation, pleural effusion or pneumothorax. Mild hyperinflation is evident. There is no overt congestive failure. CONCLUSION: New moderate peribronchial thickening. Jama Hand MD FACR on October 16, 2017 at 10:46 Board Certified Radiologist. This report was verified electronically.
== END 2017-10-16 11:41 | disposition home or self-care (01) ==
LOC: PHED 09:32
DX: J20.8 Acute bronchitis due to other specified organisms (principal); J44.0 Chronic obstructive pulmonary disease with (acute) lower respiratory infection; Z79.01 Long term (current) use of anticoagulants
CPT/HCPCS: 71045; 87804; 99284

== ENCOUNTER 2017-10-17 08:27 | Inpatient (IN) | payer MEDICARE, OTHER ==
[~2017-10-17] VITALS: Ht 167.6 cm; Wt 57.3 kg
[2017-10-17] VITALS (7 sets, daily range): BP systolic 106–134; BP diastolic 57–74; PULSE 72–104; RESP 18–20; TEMP 96.5–101.1; O2SAT 89–95
[~2017-10-17 08:27] MED LIST changes: +ALBU0.63 NEB; +SYMB160A INH
--- NOTE | 2017-10-17 08:57 | PD ---
HPI Chief Complaint: Chest Pain Time Seen by Provider: 08:33 Travel History International Travel<30 days: No Contact w/Intl Traveler<30days: No Traveled to known affect area: No History of Present Illness HPI This 77-year-old female is complaining of chest pain. She says the chest pain started last night and is located over the precordial area and is quite sharp. It is aggravated by deep breathing. She has a history of COPD. She has not smoked for 20 years She was a patient here yesterday complaint of cough and congestion. Was thought she had viral bronchitis. She had a test for influenza which was negative at that time. She has continued to have a productive cough. She does take aspirin daily. She sees Dr. Patrick and believes she had a negative nuclear stress test about 2 years ago. 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 She says that since the pain started it has been fairly persistent. She has been on a course of steroids. She is currently taking 10 mg and has about 15 days left of this. PFSH Past Medical History Hx Anticoagulant Therapy: Yes (ASA) Cardiovascular Problems: Yes (70 heart blockage, last nuc stress test ? 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) Hypertension: No (PT DENIES; BP MED IS FOR CARDIAC BLOCKAGE) Respiratory: Yes (COPD) Immunizations Current: Yes PNEUMOCCOCAL Vaccine (Year): 2009 Menopausal: Yes : 3 Para: 4 Miscarriage: 1 Tubal Ligation: Yes Past Surgical History Hysterectomy: No Social History Alcohol Use: Yes (OCC) Tobacco Use: No (QUIT 1998) Substance Use: No Allergies-Medications (Allergen,Severity, Reaction): Coded Allergies: penicillin G (Verified Allergy, Severe, HIVES, 10/17/17) Reported Meds & Prescriptions Reported Meds & Active Scripts Active Prednisone 20 Mg Tab 20 Mg PO BID 5 Days Reported Albuterol Neb (Albuterol Sulfate) Unknown Strength Neb Unknown Dose NEB TID PRN Symbicort Inh (Budesonide/Formoterol Fumarate) Unknown Strength Aero Unknown Dose INH Q12HR Restoril (Temazepam) 30 Mg Cap 30 Mg PO HS Meclizine (Meclizine HCl) 25 Mg Tab 25 Mg PO Q6HR PRN Gabapentin 100 Mg Cap 100 Mg PO DAILY Calcium Carbonate (Antacid) 500 Mg Chew 500 Mg CHEW DAILY Atorvastatin (Atorvastatin Calcium) 40 Mg Tab 40 Mg PO HS Aspirin 81 Mg Chew 81 Mg CHEW DAILY Amlodipine (Amlodipine Besylate) 5 Mg Tab 5 Mg PO DAILY Ventolin Hfa 18 GM Inh (Albuterol Sulfate) 90 Mcg/Act Aer 2 Puff INH Q4H PRN Review of Systems General / Constitutional: Positive: Fever, Chills Eyes: Positive: Drainage, Redness HENT: No: Headaches, Vertigo Cardiovascular: Positive: Chest Pain or Discomfort, No: Irregular Rhythm Respiratory: Positive: Cough, Shortness of Breath, No: Wheezing, Sneezing, Orthopnea Gastrointestinal: No: Nausea, Vomiting Genitourinary: No: Urgency, Frequency Musculoskeletal: Positive: Myalgias Skin: No Rash, No Itching Neurologic: No: Syncope Psychiatric: No: Anxiety Endocrine: No: Heat Intolerance, Cold Intolerance Hematologic/Lymphatic: No: Easy Bruising Physical Exam Narrative GENERAL thin female, in some mild respiratory distress. Her oximetry on room air is less than 90. SKIN: Focused skin assessment warm/dry. HEAD: Atraumatic. Normocephalic. EYES: Pupils equal and round. No scleral icterus. There is bilateral conjunctival injection there is some drainage in the right eye. Anterior chambers are clear ENT: No nasal bleeding or discharge. Mucous membranes pink and moist. NECK: Trachea midline. No JVD. CARDIOVASCULAR: Regular rate and rhythm. No murmur appreciated. RESPIRATORY: There are scattered rhonchi and occasional wheeze. Breath sounds equal bilaterally. There is no chest wall tenderness GASTROINTESTINAL: Abdomen soft, non-tender, nondistended. Hepatic and splenic margins not palpable. MUSCULOSKELETAL: No obvious deformities. No clubbing. No cyanosis. No edema. NEUROLOGICAL: Awake and alert. No obvious cranial nerve deficits. Motor grossly within normal limits. Normal speech. PSYCHIATRIC: Appropriate mood and affect; insight and judgment normal. Data Data Last Documented VS Vital Signs Date Time Temp Pulse Resp B/P (MAP) Pulse Ox O2 Delivery O2 Flow Rate FiO2 10/17/17 08:45 104 20 95 Nasal Cannula 1.00 10/17/17 08:35 101.1 131/68 (89) Orders Orders Electrocardiogram (10/17/17 08:47) Complete Blood Count With Diff (10/17/17 08:47) Comprehensive Metabolic Panel (10/17/17 08:47) Troponin I (10/17/17 08:47) Blood Culture (10/17/17 08:47) Urinalysis - C+S If Indicated (10/17/17 08:47) Influenzae A/B Antigen (10/17/17 08:47) Chest, Pa & Lat (10/17/17 08:47) Acetaminophen (Tylenol) (10/17/17 09:00) Lactic Acid Sepsis Protocol (10/17/17 08:54) B-Type Natriuretic Peptide (10/17/17 08:54) Sodium Chlor 0.9% 1000 Ml Inj (Ns 1000 M (10/17/17 10:00) Ceftriaxone Inj (Rocephin Inj) (10/17/17 10:00) Azithromycin Inj (Zithromax Inj) (10/17/17 10:00) Labs Laboratory Tests Test 10/17/17 09:00 White Blood Count 15.5 TH/MM3 Red Blood Count 3.93 MIL/MM3 Hemoglobin 12.0 GM/DL Hematocrit 36.4 % Mean Corpuscular Volume 92.5 FL Mean Corpuscular Hemoglobin 30.5 PG Mean Corpuscular Hemoglobin Concent 33.0 % Red Cell Distribution Width 12.9 % Platelet Count 223 TH/MM3 Mean Platelet Volume 8.9 FL Neutrophils (%) (Auto) 80.3 % Lymphocytes (%) (Auto) 9.1 % Monocytes (%) (Auto) 9.2 % Eosinophils (%) (Auto) 1.2 % Basophils (%) (Auto) 0.2 % Neutrophils # (Auto) 12.5 TH/MM3 Lymphocytes # (Auto) 1.4 TH/MM3 Monocytes # (Auto) 1.4 TH/MM3 Eosinophils # (Auto) 0.2 TH/MM3 Basophils # (Auto) 0.0 TH/MM3 CBC Comment DIFF FINAL Differential Comment Blood Urea Nitrogen 10 MG/DL Creatinine 0.80 MG/DL Random Glucose 101 MG/DL Sodium Level 138 MEQ/L Potassium Level 3.6 MEQ/L Chloride Level 101 MEQ/L Estimat Glomerular Filtration Rate 70 ML/MIN B-Type Natriuretic Peptide 24 PG/ML MDM Medical Decision Making Medical Screen Exam Complete: Yes Emergency Medical Condition: Yes Medical Record Reviewed: Yes Differential Diagnosis Differential includes pneumonia, upper respiratory infection, coronary artery disease Narrative Course Patient's pain is pleuritic and not typical of coronary artery disease. Her EKG shows sinus rhythm. Her oximetry on room air is consistently below 90 with 1-2 L she is 92-94%. A PA and lateral chest x-ray was done. She is again noted to have mild diffuse interstitial prominence without significant change from yesterday's film. Her white count is 15,000. She will be given a additional dose of Solu-Medrol Lex Fleming MD Oct 17, 2017 08:57
[2017-10-17] MEDS ORDERED: ACETAMINOPHEN 325 MG TAB PO ONE (09:00)
[2017-10-17 09:20] LABS: AUTOMATED NEUTROPHIL # 12.5 TH/MM3 (1.8-7.7); BASOPHIL % 0.2 % (0.0-2.0); EOSINOPHIL # 0.2 TH/MM3 (0-0.4); EOSINOPHIL % 1.2 % (0.0-4.0); HEMATOCRIT 36.4 % (35.0-46.0); LYMPH % 9.1 % (9.0-44.0); LYMPHOCYTE # 1.4 TH/MM3 (1.0-4.8); MEAN CELL VOLUME 92.5 FL (80.0-100.0); MEAN CORPUSCULAR HEMOGLOBIN 30.5 PG (27.0-34.0); MEAN PLATELET VOLUME 8.9 FL (7.0-11.0); MONO % 9.2 % (0.0-8.0); MONOCYTE # 1.4 TH/MM3 (0-0.9); NEUT % 80.3 % (16.0-70.0); PLATELET COUNT 223 TH/MM3 (150-450); RED BLOOD COUNT 3.93 MIL/MM3 (4.00-5.30); RED CELL DISTRIBUTION WIDTH 12.9 % (11.6-17.2); WHITE BLOOD COUNT 15.5 TH/MM3 (4.0-11.0)
[2017-10-17 09:38] LABS: GLOMERULAR FILTRATION RATE 70 ML/MIN (>89)
[2017-10-17 09:39] LABS: BLOOD UREA NITROGEN 10 MG/DL (7-18); CHLORIDE 101 MEQ/L (98-107); GLUCOSE,RANDOM 101 MG/DL (74-106); SODIUM (NA) 138 MEQ/L (136-145)
[2017-10-17] MEDS ORDERED: cefTRIAXone INJ 1,000 MG in SODIUM CHLORIDE 0.9% INJ 100 ML IV ONE (10:00)
[2017-10-17] MEDS ORDERED: AZITHROMYCIN INJ 500 MG in SODIUM CHLOR 0.9% 250 ML INJ 250 ML IV ONE (10:00)
[2017-10-17] MEDS ORDERED: SODIUM CHLOR 0.9% 1000 ML INJ 1,000 ML IV SCH (10:00)
--- NOTE | 2017-10-17 10:01 | RADRPT ---
EXAM DATE/TIME: 10/17/2017 09:41 [facility] COMPARISON: CHEST SINGLE AP, October 16, 2017, 10:25. CHEST PA & LAT, August 12, 2015, 10:09. INDICATIONS : Cough, short of breath, chest tightness. MEDICAL HISTORY : Chronic obstructive pulmonary disease. SURGICAL HISTORY : None. ENCOUNTER: Initial ACUITY: 4 - 6 days PAIN SCORE: 0/10 LOCATION: Bilateral chest FINDINGS: Mild diffuse interstitial prominence similar to previous exam. No new focal pleural or parenchymal op acities. Cardiomediastinal contours are within normal limits. Bony thorax is intact. CONCLUSION: 1. Chronic interstitial prominence. 2. No acute abnormality or significant interval change. Umer Puentes MD on October 17, 2017 at 9:55 Board Certified Radiologist. This report was verified electronically.
[2017-10-17] MEDS ORDERED: methylPREDNISolone SOD SUCC 125 MG/2 ML VIAL IV SCH (10:15)
[2017-10-17] MEDS ORDERED: RESP: ALBUTEROL 2.5 MG/IPRATROPIUM 0.5 MG NEB (SCH) NEB ONE (10:15)
[2017-10-17 12:14] LABS: ALBUMIN 3.3 GM/DL (3.4-5.0); ALT (GPT) 19 U/L (10-53); AST (GOT) 14 U/L (15-37); BICARBONATE 27.2 MEQ/L (21.0-32.0); CALCIUM 9.2 MG/DL (8.5-10.1)
[2017-10-17] MEDS ORDERED: MECLIZINE HCL 25 MG TAB PO PRN (12:15)
[2017-10-17 12:17] LABS: ALKALINE PHOSPHATASE 104 U/L (45-117); TOTAL BILIRUBIN ADULT 0.5 MG/DL (0.2-1.0); TOTAL PROTEIN 7.6 GM/DL (6.4-8.2); TROPONIN I LESS THAN 0.02 NG/ML (0.02-0.05)
[2017-10-17] MEDS ORDERED: SODIUM CHLOR 0.9% 1000 ML INJ 1,000 ML IV ONE (12:30)
[2017-10-17] MEDS ORDERED: SODIUM CHLORID 0.9% 500 ML INJ 500 ML IV ONE (12:30)
--- NOTE | 2017-10-17 12:46 | HHI.HP ---
[facility] Non-Staff Admission Diagnosis COPD EXACERBATION Diagnoses: Chief Complaint: Coughing and chest pain Travel History International Travel<30 Days: No Contact w/Intl Traveler <30 Da: No Traveled to Known Affected Are: No History of Present Illness 77-year-old white female being admitted for sepsis secondary to acute bacterial bronchitis. Patient was in her usual state of health until about a week ago when she says that her chronic cough started getting worse. Her cough sounds wet but she has been on able to expectorate any sputum. She reports having fevers at home over the course of the days and has been feeling tired. Denies any nausea vomiting or diarrhea. Patient herself denies any runny nose or sore throat. She did come to the emergency department S night due to the persistence of this cough and was discharged home in stable condition. However this morning she woke up with diffuse chest pain all over as well as a feeling of chest congestion and that prompted her to come back to the emergency department. She says her chest pain is worse when she leans forward or bends over to pick anything up and is also pleuritic in nature with deep breaths. She reports having chest minimal shortness of breath upon exertion but no shortness of breath upon rest. She has been on steroids for the time being by her latest chemistry associate for daily dosing of 10 mg of prednisone. She denies taking any antibiotics in the last 2 weeks. She does report sick contact of her having a cold. Review of Systems Except as stated in HPI: all other systems reviewed are Neg Past Family Social History Past Medical History COPD Coronary artery disease Hyperlipidemia Allergies: Coded Allergies: penicillin G (Verified Allergy, Severe, HIVES, 10/17/17) Family History no fam hx of lung cancer but does admit to heart disease in family Social History Report smoking up until 20 years ago Physical Exam Vital Signs Vital Signs Date Time Temp Pulse Resp B/P (MAP) Pulse Ox O2 Delivery O2 Flow Rate FiO2 10/17/17 08:45 104 20 95 Nasal Cannula 1.00 10/17/17 08:35 101.1 104 20 131/68 (89) 89 Physical Exam VS: afebrile GENERAL: Sitting in bed, awake, alert, no acute distress SKIN: Warm and dry. EYES: No scleral icterus. No injection or drainage. ENT: No nasal bleeding or discharge. Mucous membranes pink and moist. CARDIOVASCULAR: Regular rate and rhythm. no murmurs RESPIRATORY: No accessory muscle use. Clear to auscultation. Breath sounds equal bilaterally. GASTROINTESTINAL: Abdomen soft, non-tender, nondistended. Extremities: No clubbing, cyanosis, or edema. No obvious deformities. MUSCULOSKELETAL: grossly intact ROM with 5/5 strength in upper and lower extremities proximally; adequate muscle bulk and tone for age and habitus. Has profound tenderness to palpation over the sternum and over bilateral pectoral muscles. Patient affirms that this is the same pain she had in the morning. NEUROLOGICAL: Awake and alert. No obvious cranial nerve deficits. No facial droop nor slurred speech noted. PSYCHIATRIC: Appropriate mood and affect; insight and judgment normal. Laboratory Laboratory Tests Test 10/17/17 09:00 White Blood Count 15.5 Red Blood Count 3.93 Hemoglobin 12.0 Hematocrit 36.4 Mean Corpuscular Volume 92.5 Mean Corpuscular Hemoglobin 30.5 Mean Corpuscular Hemoglobin Concent 33.0 Red Cell Distribution Width 12.9 Platelet Count 223 Mean Platelet Volume 8.9 Neutrophils (%) (Auto) 80.3 Lymphocytes (%) (Auto) 9.1 Monocytes (%) (Auto) 9.2 Eosinophils (%) (Auto) 1.2 Basophils (%) (Auto) 0.2 Neutrophils # (Auto) 12.5 Lymphocytes # (Auto) 1.4 Monocytes # (Auto) 1.4 Eosinophils # (Auto) 0.2 Basophils # (Auto) 0.0 CBC Comment DIFF FINAL Differential Comment Blood Urea Nitrogen 10 Creatinine 0.80 Random Glucose 101 Sodium Level 138 Potassium Level 3.6 Chloride Level 101 Estimat Glomerular Filtration Rate 70 B-Type Natriuretic Peptide 24 Date/Time Source Procedure Growth Status 10/17/17 09:00 Blood Peripheral Aerobic Blood Culture Pending Received 10/17/17 09:00 Blood Peripheral Anaerobic Blood Culture Pending Received 10/17/17 09:50 Nasal Aspirate Influenza Types A,B Antigen (LIZZETTE) - Final NEGATIVE FOR FLU A AND B ANTIGEN.... Complete Result Diagram: 10/17/1789910/17/17 0900 Caprini VTE Risk Assessment Caprini VTE Risk Assessment: Mod/High Risk (score >= 2) Caprini Risk Assessment Model Point Value = 1 Point Value = 2 Point Value = 3 Point Value = 5 Age 41-60 Minor surgery BMI > 25 kg/m2 Swollen legs Varicose veins or History of unexplained or recurrent spontaneous Oral contraceptives or hormone replacement Sepsis (< 1 month) Serious lung disease, including pneumonia (< 1 month) Abnormal pulmonary function Acute myocardial infarction Congestive heart failure (< 1 month) History of inflammatory bowel disease Medical patient at bed rest Age 61-74 Arthroscopic surgery Major open surgery (> 45 min) Laparoscopic surgery (> 45 min) Malignancy Confined to bed (> 72 hours) Immobilizing plaster cast Central venous access Age >= 75 History of VTE Family history of VTE Factor V Leiden Prothrombin [id number] Lupus anticoagulant Anticardiolipin antibodies Elevated serum homocysteine Heparin-induced thrombocytopenia Other congenital or acquired thrombophilia Stroke (< 1 month) Elective arthroplasty Hip, pelvis, or leg fracture Acute spinal cord injury (< 1 month) Prophylaxis Regimen Total Risk Factor Score Risk Level Prophylaxis Regimen 0-1 Low Early ambulation 2 Moderate Order ONE of the following: *Sequential Compression Device (SCD) *Heparin 5000 units SQ BID 3-4 Higher Order ONE of the following medications: *Heparin 5000 units SQ TID *Enoxaparin/Lovenox 40 mg SQ daily (WT < 150 kg, CrCl > 30 mL/min) *Enoxaparin/Lovenox 30 mg SQ daily (WT < 150 kg, CrCl > 10-29 mL/min) *Enoxaparin/Lovenox 30 mg SQ BID (WT < 150 kg, CrCl > 30 mL/min) AND/OR *Sequential Compression Device (SCD) 5 or more Highest Order ONE of the following medications: *Heparin 5000 units SQ TID (Preferred with Epidurals) *Enoxaparin/Lovenox 40 mg SQ daily (WT < 150 kg, CrCl > 30 mL/min) *Enoxaparin/Lovenox 30 mg SQ daily (WT < 150 kg, CrCl > 10-29 mL/min) *Enoxaparin/Lovenox 30 mg SQ BID (WT < 150 kg, CrCl > 30 mL/min) AND *Sequential Compression Device (SCD) Assessment and Plan Assessment and Plan Sepsis - With tachycardia and fever, likely secondary to acute bacterial bronchitis - We'll give IV fluids and antibiotics as below - Blood cultures obtained Acute bacterial bronchitis w/ mild hypoxia - Covering with azithromycin and Rocephin - Independently review the chest x-ray which shows no acute infiltrates, just chronic findings - Parul phillips - Already received a large dose of steroids in the ER, will transition to by mouth prednisone since the patient is on this chronically Chest pain - It is clearly costochondritic in my impression, I will not trend enzymes therefore and I will not workup from a cardiac standpoint - Naproxen scheduled given CAD hx Coronary artery disease - Resume home Lipitor and atorvastatin COPD - Resume home Symbicort Addendum: Patient did note to have oxygen saturation dropped to 84% as she ambulated on room air back and forth from the bathroom. We'll continue to dose high-dose steroids for another 24 hours. [facility] Physician Certification 2 Midnight Certification Type: Admission for Inpatient Services Order for Inpatient Services The services are ordered in accordance with Medicare regulations or non- Medicare payer requirements, as applicable. In the case of services not specified as inpatient-only, they are appropriately provided as inpatient services in accordance with the 2-midnight benchmark. Estimated LOS (days): 2 2 days is the estimated time the patient will need to remain in the hospital, assuming treatment plan goals are met and no additional complications. Post-Hospital Plan: Home Shai Buckner MD Oct 17, 2017 12:46
[2017-10-17] MEDS ORDERED: NAPROXEN 500 MG TAB PO ONE (13:00)
[2017-10-17] MEDS ORDERED: methylPREDNISolone SOD SUCC 40 MG/1 ML VIAL IV PUSH ONE (14:00)
[2017-10-17] MEDS: SODIUM CHLOR 0.9% 1000 ML INJ 1,000 ML IV SCH (15:16)
[2017-10-17 15:55] LABS: BILIRUBIN, URINE NEG (NEG); BLOOD, URINE NEG (NEG); GLUCOSE,URINE 250 mg/dL (NEG); KETONE, URINE NEG (NEG); NITRITE,URINE NEG (NEG); URINE LEUKOCYTE ESTERASE NEG (NEG)
[2017-10-17 16:04] LABS: SQUAMOUS EPITHELIAL CELL URINE 0-5 /hpf (0-5); URINE COLOR YELLOW (YELLW/STRAW)
[2017-10-17] MEDS ORDERED: methylPREDNISolone SOD SUCC 125 MG/2 ML VIAL IV PUSH SCH (18:00)
[2017-10-17] MEDS ORDERED: IOHEXOL 350 MG/ML 10 ML VIAL (for RAD DIAG) IVCONTRAST ONE (20:00)
--- NOTE | 2017-10-17 20:21 | RADRPT ---
EXAM DATE/TIME: 10/17/2017 19:51 [facility] COMPARISON: CT PULMONARY ANGIOGRAM, May 02, 2017, 0:04. INDICATIONS : Hypoxia. Cough. IV CONTRAST: 75 cc Omnipaque 350 (iohexol) IV RADIATION DOSE: 6.35 CTDIvol (mGy) MEDICAL HISTORY : Cardiovascular disease. Chronic obstructive pulmonary disease. Diabetes mellitus type 2. SURGICAL HISTORY : Tubal ligation. ENCOUNTER: Initial ACUITY: 3 days PAIN SCALE: 0/10 LOCATION: Bilateral chest TECHNIQUE: Volumetric scanning of the chest was performed using a pulmonary embolism protocol MIP images were re constructed. Using automated exposure control and adjustment of the mA and/or kV according to patien t size, radiation dose was kept as low as reasonably achievable to obtain optimal diagnostic quality images. DICOM format image data is available electronically for review and comparison. Follow-up recommendations for detected pulmonary nodules are based at a minimum on nodule size and pa tient risk factors according to Fleischner Society Guidelines. FINDINGS: PULMONARY ARTERIES: No filling defects are seen in the pulmonary arteries through the segmental level. LUNGS: Patchy bilateral infiltrates are seen, mostly the upper lobes and left worse than right but also some patchy consolidation of both bases. Some of the consolidation is mildly nodular. The consolidation i s new compared to last April. No pleural effusion. No pneumothorax. Moderate emphysema again noted. PLEURAE: There is no pleural thickening or pleural effusion. MEDIASTINUM: There is good visualization of the great vessels of the middle mediastinum. No evidence of mediastin al or hilar adenopathy/mass. MUSCULOSKELETAL: Within normal limits for patient age. MISCELLANEOUS: The visualized upper abdominal organs demonstrate no acute abnormality. CONCLUSION: Patchy pneumonia of both lungs, upper lobe predominant and left worse than right. No pulmonary embolu edilson Reyes MD on October 17, 2017 at 20:17 Board Certified Radiologist. This report was verified electronically.
[2017-10-17] MEDS ORDERED: BENZONATATE 100 MG CAP PO PRN (21:15)
[2017-10-17] MEDS: PROMETHAZINE/CODEINE 6.25 MG/10 MG/5 ML CUP PO PRN (22:06)
[2017-10-17] MEDS: NAPROXEN 500 MG TAB PO SCH (22:06)
[2017-10-17] MEDS: TEMAZEPAM 15 MG CAP PO SCH (22:07)
[2017-10-17] MEDS: ATORVASTATIN 40 MG TAB PO SCH (22:07)
[2017-10-18] VITALS: BP 112/53; PULSE 67; RESP 20; TEMP 96.1; O2SAT 95
[2017-10-18] MEDS: PROMETHAZINE/CODEINE 6.25 MG/10 MG/5 ML CUP PO PRN ×2 (04:33→09:23)
[2017-10-18] MEDS: methylPREDNISolone SOD SUCC 125 MG/2 ML VIAL IV PUSH SCH ×3 (06:09→21:16)
[2017-10-18 08:00] VITALS: BP 109/57; PULSE 77; RESP 22; TEMP 97.6; O2SAT 93
[2017-10-18] MEDS ORDERED: predniSONE 10 MG TAB PO SCH (09:00)
[2017-10-18] MEDS: GABAPENTIN 100 MG CAP PO SCH ×2 (09:00→09:20)
[2017-10-18] MEDS: CALCIUM CARBONATE 500 MG CHEWABLE TAB CHEW SCH (09:20)
[2017-10-18] MEDS: NAPROXEN 500 MG TAB PO SCH ×2 (09:20→21:13)
[2017-10-18] MEDS: amLODIPine BESYLATE 5 MG TAB PO SCH (09:20)
[2017-10-18] MEDS: ASPIRIN 81 MG CHEW TAB CHEW SCH (09:21)
[2017-10-18] MEDS: cefTRIAXone INJ 1,000 MG in SODIUM CHLORIDE 0.9% INJ 100 ML IV SCH (09:21)
[2017-10-18] MEDS: AZITHROMYCIN INJ 500 MG in SODIUM CHLOR 0.9% 250 ML INJ 250 ML IV SCH (11:13)
--- NOTE | 2017-10-18 11:41 | EKG ---
Date Performed: 10/17/2017 Time Performed: 08:34:03 PTAGE: 77 years EKG: SINUS TACHYCARDIA MINIMAL ST DEPRESSION ABNORMAL RHYTHM ECG Compared to PREVIOUS TRACING , the sinus tachycardia and the nonspecific ST segment changes are new. PREVIOUS TRACIN08/06/2017 20.37 DOCTOR: Ayala Reina Interpretating Date/Time 10/18/2017 11:41:12
[2017-10-18 12:00] VITALS: BP 132/85; PULSE 64; RESP 22; TEMP 97.3; O2SAT 96
[2017-10-18] MEDS: SODIUM CHLOR 0.9% 1000 ML INJ 1,000 ML IV SCH (12:19)
[2017-10-18] MEDS: ENOXAPARIN SODIUM 30 MG/0.3 ML SYRINGE SQ SCH (13:33)
[2017-10-18 16:00] VITALS: BP 120/61; PULSE 70; RESP 20; TEMP 97; O2SAT 98
[2017-10-18 16:47] LABS: CALCIUM 9.3 MG/DL (8.5-10.1)
[2017-10-18 16:48] LABS: BICARBONATE 25.8 MEQ/L (21.0-32.0)
[2017-10-18 16:51] LABS: CREATININE 0.67 MG/DL (0.50-1.00)
--- NOTE | 2017-10-18 16:56 | HHI.PR ---
Subjective Remarks Nursing denies any deterioration since last night. Patient says her breathing is low but better today. Objective Vital Signs Date Time Temp Pulse Resp B/P (MAP) Pulse Ox O2 Delivery O2 Flow Rate FiO2 10/18/17 12:00 97.3 64 22 132/85 (101) 96 10/18/17 11:50 95 Room Air 10/18/17 10:20 20 10/18/17 08:00 97.6 77 22 109/57 (74) 93 10/18/17 00:00 96.1 67 20 112/53 (72) 95 10/17/17 20:00 96.5 72 20 112/64 (80) 95 I/O 10/17/17 10/17/17 10/17/17 10/18/17 10/18/17 10/18/17 07:00 15:00 23:00 07:00 15:00 23:00 Intake Total 100 ml 3750 ml 720 ml 100 ml Balance 100 ml 3750 ml 720 ml 100 ml Intake Oral 720 ml IV Total 100 ml 3750 ml 100 ml # Voids 4 Result Diagram: 10/17/17 0900 10/18/17 1611 Objective Remarks On nasal cannula No acute distress Coarse breath sounds bilaterally with just a hint of Rales on the left lower lobe, no crackles and no rhonchi No lower extremity edema A/P Assessment and Plan Sepsis - improving - now afebrile Acute bacterial bronchitis w/ acute hypoxic respiratory failure - Covering with azithromycin and Rocephin - Duo nebs - lower solumedrol dose - echo in am; 1x dose of lasix and KCL today mild hint of rales in left lung COPD - home Symbicort Coronary artery disease - home Lipitor and atorvastatin Dispo: Anticipate discharge in a.m. after echo results come in and home O2 walk test and blood cultures are negative, to be sent home with antibiotics and continous steroids w/ close f/u with pulmonology. Shai Garcia MD Oct 18, 2017 16:56
[2017-10-18] MEDS: INSULIN NovoLIN REGULAR SUPPLEMENTAL SCALE SQ SCH ×2 (18:58→21:13)
[2017-10-18] MEDS ORDERED: POTASSIUM CHLORIDE 10 MEQ CONTROLLED RELEASE TAB PO ONE (19:00)
[2017-10-18] MEDS ORDERED: FUROSEMIDE 40 MG/4 ML VIAL IV PUSH ONE (19:00)
[2017-10-18 20:00] VITALS: BP 140/79; PULSE 99; RESP 16; TEMP 92.6; O2SAT 92
[2017-10-18] MEDS: ATORVASTATIN 40 MG TAB PO SCH (21:13)
[2017-10-18] MEDS: TEMAZEPAM 15 MG CAP PO SCH (21:13)
[2017-10-19] VITALS: BP 142/64; PULSE 75; RESP 18; TEMP 96; O2SAT 94
[2017-10-19] MEDS: PROMETHAZINE/CODEINE 6.25 MG/10 MG/5 ML CUP PO PRN (00:20)
[2017-10-19] MEDS ORDERED: RESP: ALBUTEROL 2.5 MG/IPRATROPIUM 0.5 MG NEB (PRN) ONE (04:59)
[2017-10-19 05:00] VITALS: O2SAT 98
[2017-10-19] MEDS: RESP: ALBUTEROL 2.5 MG/IPRATROPIUM 0.5 MG NEB (SCH) NEB ×2 (05:00→14:13)
[2017-10-19 07:50] VITALS: O2SAT 98
[2017-10-19 08:00] VITALS: BP 105/58; PULSE 68; RESP 18; TEMP 98; O2SAT 96
[2017-10-19] MEDS: RESP: ACETYLCYSTEINE 10% 30 ML NEB NEB SCH ×2 (08:00→14:00)
[2017-10-19] MEDS: INSULIN NovoLIN REGULAR SUPPLEMENTAL SCALE SQ SCH ×2 (08:00→12:00)
[2017-10-19] MEDS: cefTRIAXone INJ 1,000 MG in SODIUM CHLORIDE 0.9% INJ 100 ML IV SCH (09:18)
[2017-10-19] MEDS: GABAPENTIN 100 MG CAP PO SCH ×2 (09:25→12:04)
[2017-10-19] MEDS: amLODIPine BESYLATE 5 MG TAB PO SCH (09:25)
[2017-10-19] MEDS: ASPIRIN 81 MG CHEW TAB CHEW SCH (09:25)
[2017-10-19] MEDS: NAPROXEN 500 MG TAB PO SCH (09:25)
[2017-10-19] MEDS: CALCIUM CARBONATE 500 MG CHEWABLE TAB CHEW SCH (09:26)
[2017-10-19] MEDS: methylPREDNISolone SOD SUCC 125 MG/2 ML VIAL IV PUSH SCH (09:30)
[2017-10-19] MEDS ORDERED: guaiFENesin/CODEINE SYRUP 200 MG/20 MG/10 ML CUP PO PRN (10:15)
[2017-10-19] MEDS ORDERED: RESP: ALBUTEROL 2.5 MG/IPRATROPIUM 0.5 MG NEB (PRN) NEB (11:00)
[2017-10-19] MEDS: AZITHROMYCIN INJ 500 MG in SODIUM CHLOR 0.9% 250 ML INJ 250 ML IV SCH (11:53)
[2017-10-19 12:00] VITALS: BP 108/55; PULSE 62; RESP 18; TEMP 97; O2SAT 98
[2017-10-19] MEDS: ENOXAPARIN SODIUM 30 MG/0.3 ML SYRINGE SQ SCH (12:47)
[2017-10-19] MEDS ORDERED: AZIT500T2 PO (13:47)
[2017-10-19] MEDS ORDERED: CEFU1TAB18 PO (13:47)
--- NOTE | 2017-10-19 13:49 | HHI.DS ---
Discharge Summary Admission Date Oct 17, 2017 at 10:52 Discharge Date: Oct 19, 2017 Admitting Diagnosis COPD EXACERBATION (1) COPD exacerbation ICD Code: J44.1 - Chronic obstructive pulmonary disease with (acute) exacerbation (2) CAP (community acquired pneumonia) ICD Code: J18.9 - Pneumonia, unspecified organism Procedures none Brief History - From Admission 77-year-old white female being admitted for sepsis secondary to acute bacterial bronchitis. Patient was in her usual state of health until about a week ago when she says that her chronic cough started getting worse. Her cough sounds wet but she has been on able to expectorate any sputum. She reports having fevers at home over the course of the days and has been feeling tired. Denies any nausea vomiting or diarrhea. Patient herself denies any runny nose or sore throat. She did come to the emergency department S night due to the persistence of this cough and was discharged home in stable condition. However this morning she woke up with diffuse chest pain all over as well as a feeling of chest congestion and that prompted her to come back to the emergency department. She says her chest pain is worse when she leans forward or bends over to pick anything up and is also pleuritic in nature with deep breaths. She reports having chest minimal shortness of breath upon exertion but no shortness of breath upon rest. 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 She denies taking any antibiotics in the last 2 weeks. She does report sick contact of her having a cold. CBC/BMP: 10/17/17 0900 10/18/17 1611 Significant Findings Laboratory Tests Test 10/17/17 09:00 10/17/17 15:30 10/17/17 15:45 10/18/17 16:11 White Blood Count 15.5 TH/MM3 (4.0-11.0) Red Blood Count 3.93 MIL/MM3 (4.00-5.30) Neutrophils (%) (Auto) 80.3 % (16.0-70.0) Monocytes (%) (Auto) 9.2 % (0.0-8.0) Neutrophils # (Auto) 12.5 TH/MM3 (1.8-7.7) Monocytes # (Auto) 1.4 TH/MM3 (0-0.9) Albumin 3.3 GM/DL (3.4-5.0) Aspartate Amino Transf (AST/SGOT) 14 U/L (15-37) Estimat Glomerular Filtration Rate 70 ML/MIN (>89) 86 ML/MIN (>89) Troponin I LESS THAN 0.02 NG/ML Urine Glucose (UA) 250 mg/dL (NEG) D-Dimer Quantitative (PE/DVT) 1.80 MG/L FEU (0.00-0.50) Random Glucose 143 MG/DL (74-106) Chloride Level 108 MEQ/L (98-107) Imaging Last Impressions Chest X-Ray 10/17/17 0847 Signed Impressions: Service Date/Time: October 09:41 - CONCLUSION: 1. Chronic interstitial prominence. 2. No acute abnormality or significant interval change. Umer Puentes MD CT Angiography 10/17/17 0000 Signed Impressions: Service Date/Time: October 19:51 - CONCLUSION: Patchy pneumonia of both lungs, upper lobe predominant and left worse than right. No pulmonary embolus. Jak Reyes MD PE at Discharge GENERAL: This is a well-nourished, well-developed patient, in no apparent distress. CARDIOVASCULAR: Regular rate and rhythm without murmurs, gallops, or rubs. RESPIRATORY: Clear to auscultation. Breath sounds equal bilaterally. No wheezes , rales, or rhonchi. GASTROINTESTINAL: Abdomen soft, non-tender, nondistended. Normal active bowel sounds MUSCULOSKELETAL: Extremities without clubbing, cyanosis, or edema. NEURO: Alert & Oriented x4 to person, place, time, situation. Moves all ext x4 Pt update on day of discharge Patient seen and evaluated today in follow-up for discharge planning. COPD/ acute pneumonia is improved. Patient tolerating antibiotics well. Respiratory status is stable. Assessment discussed with patient and nursing team Hospital Course Patient seen and evaluated in follow up for COPD/CAP. Tolerated IV abx, IV steroids, and nebulized bronchodilators. Did well. Pt Condition on Discharge: Good Discharge Disposition: Discharge Home Discharge Time: <= 30 minutes Discharge Instructions DIET: Follow Instructions for: As Tolerated, No Restrictions Activities you can perform: Regular-No Restrictions Follow up Referrals: PCP Follow-up - 1 Week New Medications: Azithromycin (Azithromycin) 250 Mg Tab 250 MG PO DAILY for Infection for 5 Days, #5 TAB 0 Refills Continued Medications: Albuterol 18 GM Inh (Ventolin Hfa 18 GM Inh) 90 Mcg/Act Aer 2 PUFF INH Q4H PRN for SHORTNESS OF BREATH, #1 INHALER 0 Refills Albuterol Neb (Albuterol Neb) Unknown Strength Neb Unknown Dose NEB TID PRN for SHORTNESS OF BREATH, #25 NEBULE 0 Refills Amlodipine (Amlodipine) 5 Mg Tab 5 MG PO DAILY for Blood Pressure Management, #30 TAB 0 Refills Aspirin (Aspirin) 81 Mg Chew 81 MG CHEW DAILY, TAB 0 Refills Atorvastatin (Atorvastatin) 40 Mg Tab 40 MG PO HS for Cholesterol Management, #30 TAB 0 Refills Budesonide-Formoterol Inh (Symbicort Inh) Unknown Strength Aero Unknown Dose INH Q12HR, #1 INHALER 0 Refills Calcium Carbonate (Antacid) (Calcium Carbonate (Antacid)) 500 Mg Chew 500 MG CHEW DAILY for HEARTBURN, TAB 0 Refills Gabapentin (Gabapentin) 100 Mg Cap 100 MG PO DAILY, #60 CAP 0 Refills Meclizine (Meclizine) 25 Mg Tab 25 MG PO Q6HR PRN for VERTIGO, TAB 0 Refills Prednisone (Prednisone) 20 Mg Tab 20 MG PO BID for 5 Days, #10 TAB 0 Refills Temazepam (Restoril) 30 Mg Cap 30 MG PO HS for INSOMNIA, #30 CAP 0 Refills Kristy Altman MD Oct 19, 2017 13:49
[2017-10-19] MEDS ORDERED: guaiFEN-COD 200-20 MG/10ML LIQ PO (16:10)
--- NOTE | 2017-10-21 09:30 | ECHRPT ---
Indication: SHORTNESS OF BREATH CONCLUSIONS Normal left ventricular size. Wall thickness is normal. The left ventricular systolic function is grossly normal on limited imaging with about 60% LVEF. No atrial level shunt is demonstrated by color flow Doppler interrogation. [id number] mitral valve regurgitation. There is mild tricuspid valve regurgitation. The estimated pulmonary arterial pressure is 41.4 mmHg. The pulmonary valve is not well visualized. A left sided pleural effusion is present. BP: 105 / 58 HR: 68 Rhythm: Sinus MEASUREMENTS (Male / Female) Normal Values Technical Quality:Fair 2D ECHO LV Diastolic Diameter PLAX 3.9 cm 4.2 - 5.9 / 3.9 - 5.3 cm LV Systolic Diameter PLAX 2.5 cm IVS Diastolic Thickness 0.8 cm 0.6 - 1.0 / 0.6 - 0.9 cm LVPW Diastolic Thickness 0.8 cm 0.6 - 1.0 / 0.6 - 0.9 cm LV Relative Wall Thickness 0.4 RV Internal Dim ED PLAX 2.4 cm LVOT Diameter 1.7 cm Aortic Root Diameter 2.3 cm LA Systolic Diameter LX 2.7 cm 3.0 - 4.0 / 2.7 - 3.8 cm M-MODE AV Cusp Separation MM 1.7 cm DOPPLER AV Peak Velocity 106.0 cm/s AV Peak Gradient 4.5 mmHg AV Mean Gradient 3.0 mmHg AV Velocity Time Integral 26.5 cm LVOT Peak Velocity 45.9 cm/s LVOT Peak Gradient 0.8 mmHg LVOT Velocity Time Integral 10.9 cm AV Area Cont Eq vti 0.9 cm AV Area Cont Eq pk 1.0 cm Mitral E Point Velocity 76.5 cm/s Mitral A Point Velocity 59.7 cm/s Mitral E to A Ratio 1.3 LV E' Lateral Velocity 16.1 cm/s Mitral E to LV E' Lateral Ratio 4.8 LV E' Septal Velocity 11.3 cm/s Mitral E to LV E' Septal Ratio 6.8 TR Peak Velocity 280.0 cm/s TR Peak Gradient 31.4 mmHg Right Atrial Pressure 10.0 mmHg Pulmonary Artery Systolic Pressu 41.4 mmHg Right Ventricular Systolic Press 41.4 mmHg PV Peak Velocity 48.9 cm/s PV Peak Gradient 1.0 mmHg FINDINGS LEFT VENTRICLE Normal left ventricular size. Wall thickness is normal. The left ventricular systolic function is grossly normal on limited imaging. RIGHT VENTRICLE Normal right ventricular size and systolic function. LEFT ATRIUM The left atrial size is normal. RIGHT ATRIUM The right atrial size is normal. ATRIAL SEPTUM No atrial level shunt is demonstrated by color flow Doppler interrogation. AORTA The aortic root and proximal ascending aorta are normal in size on limited imaging. MITRAL VALVE [id number] mitral valve regurgitation. AORTIC VALVE Trileaflet aortic valve. No aortic valve stenosis or regurgitation. TRICUSPID VALVE There is mild tricuspid valve regurgitation. The estimated pulmonary arterial pressure is 41.4 mmHg. PULMONARY VALVE The pulmonary valve is not well visualized. VESSELS The inferior vena cava is normal in size. PERICARDIUM A left sided pleural effusion is present. No pericardial effusion. Catalino Dwyer MD Edited by: [employer] Specialist (Electronically Signed) Final Date:19 October 2017 14:10 Amended: 21 October 2017 09:29
== END 2017-10-19 16:57 | disposition home or self-care (01) | DRG 871 ==
LOC: PHED 08:27 → PHEDA 10:52 → PHICU 12:16 → PH3B 16:49
PROVIDERS: ADMIT Hospitalist; ATTEND Hospitalist
DX: A41.9 Sepsis, unspecified organism (principal); J96.01 Acute respiratory failure with hypoxia; J18.9 Pneumonia, unspecified organism; J44.1 Chronic obstructive pulmonary disease with (acute) exacerbation; J44.0 Chronic obstructive pulmonary disease with (acute) lower respiratory infection; I25.10 Atherosclerotic heart disease of native coronary artery without angina pectoris; J20.9 Acute bronchitis, unspecified; E78.5 Hyperlipidemia, unspecified; Z87.891 Personal history of nicotine dependence; Z88.0 Allergy status to penicillin
CPT/HCPCS: 71046; 71275; 80048; 80053; 81001; 82948; 83605; 83880; 84484; 85025; 85379; 87040; 87804; 93005; 93306; 94618; 94640; 94664; 94667; 94668; 96365; 96375; J0456; J0696; J1650; J1940; J2920; J2930; J7030; J7040; J7050; J7512; J7608; Q9967

== ENCOUNTER → 2017-10-28 | Outpatient (CLI) | payer MEDICARE, OTHER ==
[~2017-10-28] MED LIST changes: +AZIT500T2 PO; +CEFU1TAB18 PO; -GUAI1TAB18; +guaiFEN-COD 200-20 MG/10ML LIQ PO
[2017-10-28 09:22] LABS: BASOPHIL # 0.1 TH/MM3 (0-0.2); BASOPHIL % 0.6 % (0.0-2.0); EOSINOPHIL # 0.2 TH/MM3 (0-0.4); EOSINOPHIL % 2.2 % (0.0-4.0); HEMATOCRIT 37.1 % (35.0-46.0); HEMOGLOBIN 12.2 GM/DL (11.6-15.3); LYMPH % 25.9 % (9.0-44.0); LYMPHOCYTE # 2.9 TH/MM3 (1.0-4.8); MEAN CELL VOLUME 93.5 FL (80.0-100.0); MEAN CORPUSCULAR HEMOGLOBIN 30.7 PG (27.0-34.0); MEAN CORPUSCULAR HGB CONC 32.8 % (32.0-36.0); MEAN PLATELET VOLUME 8.6 FL (7.0-11.0); MONO % 8.1 % (0.0-8.0); MONOCYTE # 0.9 TH/MM3 (0-0.9); NEUT % 63.2 % (16.0-70.0); PLATELET COUNT 249 TH/MM3 (150-450); RED BLOOD COUNT 3.96 MIL/MM3 (4.00-5.30)
[2017-10-28 10:28] LABS: ALBUMIN 3.2 GM/DL (3.4-5.0); AST (GOT) 14 U/L (15-37); BICARBONATE 28.9 MEQ/L (21.0-32.0); BLOOD UREA NITROGEN 13 MG/DL (7-18); CALCIUM 8.8 MG/DL (8.5-10.1); CHLORIDE 104 MEQ/L (98-107); CHOLESTEROL 151 MG/DL (120-200); CREATININE 0.76 MG/DL (0.50-1.00); GLOMERULAR FILTRATION RATE 74 ML/MIN (>89); GLUCOSE,FASTING 83 MG/DL (74-99); SODIUM (NA) 139 MEQ/L (136-145)
[2017-10-28 10:54] LABS: ALKALINE PHOSPHATASE 82 U/L (45-117); ALT (GPT) 25 U/L (10-53); CHOLESTEROL/ HDL RATIO 1.92 RATIO; FOLATE 8.4 NG/ML (3.1-17.5); HDL CHOLESTEROL 78.4 MG/DL (40.0-60.0); LDL CHOLESTEROL 55 MG/DL (0-99); TOTAL BILIRUBIN ADULT 0.3 MG/DL (0.2-1.0); TOTAL PROTEIN 6.9 GM/DL (6.4-8.2); TRIGLYCERIDES 89 MG/DL (42-150)
[2017-10-28 16:19] LABS: BACTERIA, URINE OCC /hpf; BILIRUBIN, URINE NEG (NEG); BLOOD, URINE NEG (NEG); GLUCOSE,URINE NEG (NEG); HYALINE CAST, URINE 1 /lpf (RARE); KETONE, URINE NEG (NEG); NITRITE,URINE NEG (NEG); SQUAMOUS EPITHELIAL CELL URINE <1 /hpf (0-5); URINE COLOR LIGHT-YELLOW (YELLW/STRAW); URINE LEUKOCYTE ESTERASE NEG (NEG)
== END ==
LOC: PLAB 07:00
DX: J44.9 Chronic obstructive pulmonary disease, unspecified (principal); E78.2 Mixed hyperlipidemia; K21.9 Gastro-esophageal reflux disease without esophagitis; R53.83 Other fatigue; E55.9 Vitamin D deficiency, unspecified
CPT/HCPCS: 36415; 80053; 80061; 81001; 82306; 82607; 82746; 84443; 85025

== ENCOUNTER → 2018-01-27 | Outpatient (CLI) | payer MEDICARE, OTHER ==
[2018-01-27 10:32] LABS: AUTOMATED NEUTROPHIL # 5.8 TH/MM3 (1.8-7.7); BASOPHIL % 0.5 % (0.0-2.0); EOSINOPHIL # 0.3 TH/MM3 (0-0.4); EOSINOPHIL % 3.4 % (0.0-4.0); HEMATOCRIT 39.9 % (35.0-46.0); HEMOGLOBIN 13.1 GM/DL (11.6-15.3); LYMPH % 22.7 % (9.0-44.0); MEAN CELL VOLUME 90.8 FL (80.0-100.0); MEAN CORPUSCULAR HEMOGLOBIN 29.7 PG (27.0-34.0); MEAN CORPUSCULAR HGB CONC 32.8 % (32.0-36.0); MEAN PLATELET VOLUME 9.6 FL (7.0-11.0); MONO % 8.8 % (0.0-8.0); MONOCYTE # 0.8 TH/MM3 (0-0.9); NEUT % 64.6 % (16.0-70.0); PLATELET COUNT 189 TH/MM3 (150-450); RED BLOOD COUNT 4.39 MIL/MM3 (4.00-5.30); RED CELL DISTRIBUTION WIDTH 15.4 % (11.6-17.2)
[2018-01-27 10:40] LABS: ALBUMIN 3.3 GM/DL (3.4-5.0); AST (GOT) 17 U/L (15-37); BICARBONATE 30.4 MEQ/L (21.0-32.0); BLOOD UREA NITROGEN 13 MG/DL (7-18); CALCIUM 8.6 MG/DL (8.5-10.1); CHLORIDE 105 MEQ/L (98-107); CHOLESTEROL 175 MG/DL (120-200); CREATININE 0.74 MG/DL (0.50-1.00); GLOMERULAR FILTRATION RATE 77 ML/MIN (>89); GLUCOSE,FASTING 85 MG/DL (74-99); SODIUM (NA) 141 MEQ/L (136-145)
[2018-01-27 11:08] LABS: ALKALINE PHOSPHATASE 69 U/L (45-117); ALT (GPT) 22 U/L (10-53); FOLATE 10.1 NG/ML (3.1-17.5); HDL CHOLESTEROL 83.1 MG/DL (40.0-60.0); LDL CHOLESTEROL 67 MG/DL (0-99); TOTAL BILIRUBIN ADULT 0.3 MG/DL (0.2-1.0); TOTAL PROTEIN 6.7 GM/DL (6.4-8.2); TRIGLYCERIDES 123 MG/DL (42-150)
== END ==
LOC: PLAB 06:51
DX: J44.9 Chronic obstructive pulmonary disease, unspecified (principal); E78.2 Mixed hyperlipidemia; K21.9 Gastro-esophageal reflux disease without esophagitis
CPT/HCPCS: 36415; 80053; 80061; 82607; 82746; 85025